=== PATIENT | female | born 1970 | race Caucasian/White ===

== ENCOUNTER 2019-10-02 18:22 | Inpatient (IN) | payer BC ==
[~2019-10-02] VITALS: Ht 154.9 cm; Wt 75.6 kg
[2019-10-02] MEDS ORDERED: IV NORMAL SALINE 1000ML BAG 1,000 ML IV SCH (18:28)
[2019-10-02] MEDS ORDERED: HEPARIN for IV BOLUS 10,000 UNIT/10 ML VIAL. ONE ×2 (18:29→18:59)
[2019-10-02] MEDS ORDERED: HEPARIN for IV BOLUS 10,000 UNIT/10 ML VIAL. IV ONE ×2 (18:30→19:15)
--- NOTE | 2019-10-02 18:37 | PHYS DOC ---
General Adult HPI: HPI: 48-year-old female past medical history of COPD, hypothyroidism and tobacco dependence presents to the ED brought in by EMS as a code STEMI (prenotification), concerning for inferior wall STEMI. Patient reports she is having bilateral upper chest pressure nonradiating with associated shortness of breath that started at 5 PM earlier tonight. No family history of ACS or sudden cardiac . Past surgical history of . EMS gave 324 chewable asa and 100mcg fentanyl, no nitro. Patient reported to RN that she recently started a weight loss program. Review of Systems: Review of Systems: Constitutional: Denies fever or chills. [] Eyes: Denies change in visual acuity. [] HENT: Denies nasal congestion or sore throat. [] Respiratory: Denies cough or hemoptysis [] Cardiovascular: Denies edema. [] GI: Denies abdominal pain, nausea, vomiting, bloody stools or diarrhea. [] : Denies dysuria. [] Musculoskeletal: Denies back pain or joint pain. [] Integument: Denies rash. [] Neurologic: Denies headache, focal weakness or sensory changes. [] Endocrine: Denies polyuria or polydipsia. [] Lymphatic: Denies swollen glands. [] Psychiatric: Denies depression or anxiety. [] Heart Score: HEART Score for Chest Pain: HEART Score for Chest Pain Response (Comments) Value History Highly Suspicious [address] Depression 2 Age >45 - < 65 1 Risk Factors 1 or 2 Risk Factors 1 Troponin >1-<3x Normal Limit 1 Total 7 Risk Factors: Risk Factors: DM, Current or recent (<one month) smoker, HTN, HLP, family history of CAD, obesity. Risk Scores: Score 0 - 3: 2.5% MACE over next 6 weeks - Discharge Home Score 4 - 6: 20.3% MACE over next 6 weeks - Admit for Clinical Observation Score 7 - 10: 72.7% MACE over next 6 weeks - Early Invasive Strategies Current Medications: Current Medications Medications (Trade) Dose Ordered Sig/Ed Start Time Stop Time Status Last Admin Dose Admin Heparin Sodium (Porcine) (Heparin Sodium) 10,000 unit STK-MED ONCE 10/02/19 18:29 10/02/19 18:30 DC Physical Exam: PE: Constitutional: in acute distress, obese, speaking in full sentences despite hypotension and bradycardia HENT: Normocephalic, atraumatic, bilateral external ears normal, oropharynx moist, no oral exudates, nose normal. [] Eyes: EOMI, conjunctiva normal, no discharge. [] Neck: Normal range of motion, no tenderness, supple, no stridor. [] Cardiovascular:Heart rate regular rhythm, no murmur [] Lungs & Thorax: Bilateral breath sounds clear to auscultation [] Abdomen: Bowel sounds normal, soft, no tenderness, no masses, no pulsatile masses. [] Skin: Warm, pale appearing, mildly diaphoretic Back: No tenderness, no CVA tenderness. [] Extremities: No tenderness, no cyanosis, no clubbing, ROM intact, no edema. [] Neurologic: Alert and oriented X 3, normal motor function, normal sensory function, no focal deficits noted. [] Psychologic: Affect normal, judgement normal, mood normal. [] Interventional cards present in ed-Dr. Redd, recs heparin bolus and to label operator Current Patient Data: Vital Signs: 85/51, 45 & 37 bpm, 96% RA, EKG: EKG: Concern for ST elevations in 2, 3, aVF with reciprocal depressions in lead I and aVL, QTC 450, patient bradycardic at 46 bpm Radiology/Procedures: Radiology/Procedures: IMAGING REPORT Signed PATIENT: MARIETTA DE LEON ACCOUNT: [id number] : 1970 LOCATION: ER AGE: 48 SEX: F EXAM STATUS: REG ER ORD. PHYSICIAN: KO ELAINE APRN REASON: chest pain PROCEDURE: CHEST AP ONLY Study: CR CHEST AP ONLY Indication: Chest pain. Comparison: None recently. Findings: The cardiomediastinal silhouette is prominent in size. No layering effusion. No lobar consolidation or pneumothorax. Grossly intact osseous structures. No free air seen under the diaphragm. Impression: The cardiomediastinal silhouette is prominent in size but without radiographic findings of overt failure/volume overload. Electronically signed by: JOAN PEÑA MD (10/02/2019 6:50 PM) [id number] DICTATED and SIGNED BY: JOAN PEÑA MD DATE: 10/02/19 1850 Impression: Concern for inferior wall STEMI in the setting of hypotension and bradycardia. Heparin bolus started in ED. Two peripheral IVs placed with NS bolus. No change with atropine 0.5mg given by ems. Pt emergently transported to label operator w/Dr. Redd-to recieve plavix/brillinta there. Labs with troponin in normal range. Glucose 338 w/AG, bicarb < 18 (is 17)-pt denies h/o diabetes. Will need glucose repeated and HgA1c. patient will be accepted to the ICU by Dr. Damian whom I spoke with. Course & Med Decision Making: Course & Med Decision Making Pertinent Labs and Imaging studies reviewed. (See chart for details) [] Dragon Disclaimer: Dragon Disclaimer: This electronic medical record was generated, in whole or in part, using a voice recognition dictation system. Departure Departure Impression: Primary Impression: ST elevation myocardial infarction (STEMI) of inferior wall Additional Impressions: Chest pain COPD (chronic obstructive pulmonary disease) Hypothyroidism Hyperglycemia Disposition: 09 ADMITTED INPATIENT Admitting Physician: CHAN Condition: CRITICAL Justicifation of Admission Dx: Justifications for Admission: Justification of Admission Dx: Yes MD: Acute STEMI KATLIN MCKEON DO Oct 02, 2019 18:37
[2019-10-02 18:38] LABS: BASO # 0.1 x10^3/uL (0.0-0.2); BASO % 1 % (0-3); EOS # 0.2 x10^3/uL (0.0-0.7); EOS % 2 % (0-3); HEMATOCRIT 35.3 % (36.0-47.0); HEMOGLOBIN 11.6 g/dL (12.0-15.5); LYMPH # 3.7 x10^3/uL (1.0-4.8); LYMPH % 28 % (24-48); MEAN CORPUSCULAR HEMOGLOBIN 27 pg (25-35); MEAN CORPUSCULAR HGB CONC 33 g/dL (31-37); MEAN CORPUSCULAR VOLUME 83 fL (79-100); MONO # 0.7 x10^3/uL (0.0-1.1); MONO % 6 % (0-9); NEUT # 8.2 x10^3/uL (1.8-7.7); NEUT % 63 % (31-73); PLATELET COUNT 353 x10^3/uL (140-400); RED BLOOD COUNT 4.28 x10^6/uL (3.50-5.40); RED CELL DISTRIBUTION WIDTH 20.7 % (11.5-14.5)
[2019-10-02] MEDS ORDERED: PHENYLEPHRINE in 0.9% NACL PF 1 MG/10 ML SYRINGE. IV ONE (18:47)
[2019-10-02] MEDS ORDERED: ONDANSETRON PF 4 MG/2 ML VIAL. ONE (18:48)
--- NOTE | 2019-10-02 18:53 | RAD ---
Study: CR CHEST AP ONLY Indication: Chest pain. Comparison: None recently. Findings: The cardiomediastinal silhouette is prominent in size. No layering effusion. No lobar consolidation or pneumothorax. Grossly intact osseous structures. No free air seen under the diaphragm. Impression: The cardiomediastinal silhouette is prominent in size but without radiographic findings of overt failure/volume overload. Electronically signed by: JOAN PEÑA MD (10/02/2019 6:50 PM) [id number]
[2019-10-02 18:56] LABS: CALCIUM 7.8 mg/dL (8.5-10.1); CREATININE 1.2 mg/dL (0.6-1.0); GFR 48.2
[2019-10-02 19:00] LABS: ALBUMIN 2.5 g/dL (3.4-5.0); ALBUMIN/GLOBULIN RATIO 0.8 (1.0-1.7); MAGNESIUM 1.8 mg/dL (1.8-2.4); TOTAL BILIRUBIN 0.1 mg/dL (0.2-1.0); TOTAL PROTEIN 5.7 g/dL (6.4-8.2)
[2019-10-02] MEDS ORDERED: AMIODARONE 150 MG/3 ML VIAL ONE (19:00)
[2019-10-02] MEDS: PHENYLEPHRINE in 0.9% NACL PF 1 MG/10 ML SYRINGE. IV ONE (19:00)
[2019-10-02] MEDS ORDERED: TIROFIBAN 5MG -0.9% NS 100 ML IV ONE (19:00)
[2019-10-02] MEDS ORDERED: fentaNYL PF VIAL 100 MCG/2 ML VIAL ONE (19:03)
[2019-10-02 19:05] LABS: PROTHROMBIN TIME PATIENT 12.5 SEC (11.7-14.0)
[2019-10-02 19:10] LABS: PREG TEST PT QUAL NEGATIVE (NEG)
[2019-10-02] MEDS ORDERED: PRASUGREL 10 MG TABLET. PO ONE (19:15)
[2019-10-02] MEDS ORDERED: MORPHINE SULFATE 4 MG/ML VIAL. IV PRN (19:15)
[2019-10-02] MEDS ORDERED: fentaNYL PF VIAL 100 MCG/2 ML VIAL IV ONE (19:15)
[2019-10-02] MEDS ORDERED: LIDOCAINE 2% 20 ML VIAL. IJ ONE (19:15)
[2019-10-02] MEDS ORDERED: ONDANSETRON PF 4 MG/2 ML VIAL. IV PRN (19:15)
[2019-10-02] MEDS ORDERED: IODIXANOL 320 MG/ML 100 ML VIAL. IART ONE (19:15)
[2019-10-02] MEDS ORDERED: TIROFIBAN 5MG -0.9% NS 100 ML IV PRN (19:15)
[2019-10-02] MEDS ORDERED: PRASUGREL 10 MG TABLET. ONE (19:32)
[2019-10-02 19:36] LABS: MICROCYTOSIS SLIGHT; PLT ESTIMATE ADEQUATE (ADEQUATE)
[2019-10-02] MEDS ORDERED: AMIODARONE 150 MG/3 ML VIAL IVP ONE (19:45)
[2019-10-02] MEDS ORDERED: oxyCODONE/APAP 5/325 1 TAB TABLET PO PRN (19:45)
[2019-10-02] MEDS ORDERED: NITROGLYCERIN SUBLINGUAL 0.4 MG BOTTLE OF 25. SL PRN (19:45)
[2019-10-02] MEDS ORDERED: ACETAMINOPHEN 325 MG TABLET. PO PRN (19:45)
[2019-10-02] MEDS ORDERED: AMIODARONE 150 MG in IV DEXTROSE 5% 100ML 100 ML IV PRN (19:45)
[2019-10-02] MEDS ORDERED: 0.9 % SODIUM CHLORIDE 10 ML DISP.SYRIN. IV PRN (19:45)
[2019-10-02] MEDS ORDERED: LIDOCAINE 2% 100 MG/5 ML SYRINGE. IV PRN (19:45)
[2019-10-02] MEDS ORDERED: ATROPINE 0.5 MG/5 ML DISP.SYRINGE. IV PRN (19:45)
[2019-10-02] MEDS ORDERED: fentaNYL PF VIAL 100 MCG/2 ML VIAL IV PRN (19:45)
--- NOTE | 2019-10-02 19:53 | CONS ---
DATE OF CONSULTATION: 10/02/2019 REASON FOR CONSULTATION: Acute inferior STEMI. HISTORY OF PRESENT ILLNESS: The patient is a pleasant 48-year-old woman coming into the hospital in the setting of acute chest pain that started approximately 3 hours prior to admission. Her EKG demonstrated inferior ST elevations and she was in cardiogenic shock with a blood pressure of 60/40. She was emergently transferred to the cardiac catheterization laboratory after verbal informed consent was obtained. The patient otherwise denied any recent cardiovascular issues. PAST MEDICAL HISTORY: 1. Tobacco abuse. 2. COPD. 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 Denies any illicit drug use. No heavy alcohol use. She is a smoker as noted above. FAMILY HISTORY: Noncontributory. REVIEW OF SYSTEMS: Negative for 10 out of 14 systems reviewed, unless otherwise mentioned above in HPI. PHYSICAL EXAMINATION: VITAL SIGNS: Afebrile, blood pressure 60/40, heart rate 110, pulse ox 85% on 10 liters nasal cannula. GENERAL: She was in significant distress and mildly incoherent. HEAD AND NECK: Unremarkable. CARDIAC: Irregular rhythm without any obvious murmurs, rubs or gallops. LUNGS: With decreased breath sounds at the bases. ABDOMEN: Soft, nontender. EXTREMITIES: Nonpalpable pulses due to hypotension. NEUROLOGIC: No focal deficits. MUSCULOSKELETAL: No obvious trauma. DIAGNOSTIC STUDIES: EKG demonstrates a [address] elevations with reciprocal posterolateral changes. Creatinine 1.2. Cardiac catheterization demonstrated a 1-vessel coronary artery disease with acute proximal RCA occlusion. This was treated with 2 non-overlapping stents in the proximal and mid segment. See catheterization report for full details. IMPRESSION: 1. Acute inferior ST elevation myocardial infarction. 2. Tobacco abuse. 3. Transient bradycardia upon her admission, but resolved after post-PCI. RECOMMENDATIONS: 1. Continue Aggrastat drip over the next 2-4 hours. The patient was loaded with prasugrel in the roofing laborer. 2. High-dose statin therapy. 3. Routine echocardiogram. Plan for sheath removal tomorrow morning if the patient is stable overnight. Thank you for this consultation. ALEKSANDER GIANG MD DR: MARIO/darnell JOB#: [id number] / [id number]
[2019-10-02 20:15] VITALS: BP 98/55
[2019-10-02] MEDS ORDERED: IODIXANOL 320 MG/ML 100 ML VIAL. ONE (20:16)
[2019-10-02] MEDS ORDERED: LIDOCAINE 1% Multi-Dose 20 ML VIAL. ONE (20:16)
[2019-10-02] MEDS ORDERED: HEPARIN for ARTERIAL LINE 1,500 ML ONE (20:16)
[2019-10-02 20:30] VITALS: BP_SYST 116; BP_SYST 97; BP_DIAS 56; BP_DIAS 58
[2019-10-02 20:45] VITALS: BP 130/64
[2019-10-02 21:00] VITALS: BP 130/62
[2019-10-02] MEDS: ATORVASTATIN CALCIUM 20 MG TABLET PO SCH (21:26)
--- NOTE | 2019-10-02 21:30 | NUR ---
-Patient admitted to room 110 from laborer aquatic life. Patient AOX4, oriented to room and call light. Patient understands the need to lay flat as A/V sheath is still in place in right femoral. Vascular assessment completed. Assisted patient with bedpan. Patient able to answer admission questions and med was completed. Patient resting comfortably in bed, no complaints at this time. -Aggrastat turned off at [address] Marti -Re assessments not completed in ER/Senior Compliance Analyst marked "not done" by this RN
[2019-10-02] MEDS ORDERED: BUPR150T15 PO (21:45)
[2019-10-02] MEDS ORDERED: LEVO50TA PO (21:45)
[2019-10-02] MEDS ORDERED: QUET25TA5 PO (21:45)
[2019-10-02] MEDS ORDERED: FOLI20CA PO (21:45)
--- NOTE | 2019-10-02 21:51 | PDOC1 ---
History and Physical Date of Admission Date of Admission DATE: 10/02/19 TIME: 21:49 Identification/Chief Complaint Chief Complaint Chest pain Source Source: Patient History of Present Illness History of Present Illness Ms Perez is a 48 yo F w/ PMHx COPD, hypothyroidism, depression, and tobacco dependence presents to the ED brought in via EMS for inferior wall STEMI. Patient reports she is having bilateral upper chest pressure nonradiating with associated shortness of breath that started at 5 PM earlier tonight. EMS gave 324 chewable asa and 100mcg fentanyl, no nitro. Patient recently started a "detox tea" for help with weight loss. 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 BP noted 85/51, HR 45 bpm, 96% RA, ST elevations in 2, 3, aVF with reciprocal depressions in lead I and aVL, QTC 4 50, patient bradycardic at 46 bpm CXR with enlarged cardiac silhouette. Concern for inferior wall STEMI in the setting of hypotension and bradycardia. Heparin bolus started in ED. Two peripheral IVs placed with NS bolus. No change with atropine 0.5mg given by ems. Pt emergently transported to sanitation lab[facility] w/Dr. Redd, loaded with effient, heparin. Troponin in normal range. Glucose 338 w/AG, bicarb < 18 (is 17)-pt denies h/o diabetes. Cardiac catheterization demonstrated a 1-vessel coronary artery disease with acute proximal RCA occlusion. This was treated with 2 non-overlapping stents in the proximal and mid segment. She required dopamine and phenylephrine post-cath temporarily. Seen post-cath her blood pressure has normalized and she is in excellent spirits. Chest pain free. Family History Family History: High Cholestrol, Hypertension Social History Smoke: 1 pack per day ALCOHOL: rare Drugs: None Current Problem List Problem List Problems Medical Problems: (1) Chest pain Status: Acute (2) COPD (chronic obstructive pulmonary disease) Status: Acute (3) Hyperglycemia Status: Acute (4) Hypothyroidism Status: Acute (5) ST elevation myocardial infarction (STEMI) of inferior wall Status: Acute Current Medications Current Medications Current Medications Heparin Sodium (Porcine) (Heparin Sodium) 10,000 unit STK-MED ONCE .ROUTE ; Start 10/02/19 at 18:29; Stop 10/02/19 at 18:30; Status DC Heparin Sodium (Porcine) (Heparin Sodium) 4,000 unit 1X ONCE IV Last administered on 10/02/19at 18:33; Start 10/02/19 at 18:30; Stop 10/02/19 at 18:40; Status DC Sodium Chloride 1,000 ml @ 1,000 mls/hr Q1H IV Last administered on 10/02/19at 18:33; Start 10/02/19 at 18:28; Stop 10/02/19 at 19:29; Status DC Phenylephrine HCl (PHENYLEPHRINE in 0.9% NACL PF) 1 mg STK-MED ONCE IV ; Start 10/02/19 at 18:47; Stop 10/02/19 at 18:47; Status DC Dopamine HCl/ Dextrose 250 ml @ 0 mls/hr 1X ONCE IV Last administered on 10/02/19at 19:00; Start 10/02/19 at 19:00; Stop 10/02/19 at 19:01; Status DC Ondansetron HCl (Zofran) 4 mg STK-MED ONCE .ROUTE ; Start 10/02/19 at 18:48; Stop 10/02/19 at 18:48; Status DC Heparin Sodium (Porcine) (Heparin Sodium) 10,000 unit STK-MED ONCE .ROUTE ; Start 10/02/19 at 18:59; Stop 10/02/19 at 19:00; Status DC Tirofiban/Sodium Chloride 100 ml @ As Directed STK-MED ONCE IV ; Start 10/02/19 at 19:00; Stop 10/02/19 at 19:00; Status DC Amiodarone HCl (Cordarone) 150 mg STK-MED ONCE .ROUTE ; Start 10/02/19 at 19:00; Stop 10/02/19 at 19:00; Status DC Fentanyl Citrate (Fentanyl 2ml Vial) 100 mcg STK-MED ONCE .ROUTE ; Start 10/02/19 at 19:03; Stop 10/02/19 at 19:03; Status DC Ondansetron HCl (Zofran) 4 mg PRN Q8HRS PRN IV NAUSEA/VOMITING Last administered on 10/02/19at 18:50; Start 10/02/19 at 19:15; Stop 10/03/19 at 19:14 Morphine Sulfate (Morphine Sulfate) 4 mg PRN Q2HR PRN IV PAIN; Start 10/02/19 at 19:15; Stop 10/03/19 at 19:14 Heparin Sodium/ Sodium Chloride (HEPARIN for ARTERIAL LINE FLUSH) 1,000 unit 1X ONCE IART Last administered on 10/02/19at 19:15; Start 10/02/19 at 19:15; Stop 10/02/19 at 19:29; Status DC Heparin Sodium/ Sodium Chloride (HEPARIN for ARTERIAL LINE FLUSH) 1,000 unit 1X ONCE IART Last administered on 10/02/19at 19:15; Start 10/02/19 at 19:15; Stop 10/02/19 at 19:29; Status DC Fentanyl Citrate (Fentanyl 2ml Vial) 100 mcg 1X ONCE IV Last administered on 10/02/19at 19:05; Start 10/02/19 at 19:15; Stop 10/02/19 at 19:29; Status DC Iodixanol (Visipaque 320) 100 ml 1X ONCE IART Last administered on 10/02/19at 19:15; Start 10/02/19 at 19:15; Stop 10/02/19 at 19:29; Status DC Prasugrel (Effient) 60 mg 1X ONCE PO Last administered on 10/02/19at 19:15; S tart 10/02/19 at 19:15; Stop 10/02/19 at 19:29; Status DC Heparin Sodium (Porcine) (Heparin Sodium) 2,000 unit 1X ONCE IV Last administered on 10/02/19at 19:05; Start 10/02/19 at 19:15; Stop 10/02/19 at 19:29; Status DC Lidocaine HCl 20 ml 1X ONCE IJ Last administered on 10/02/19at 18:50; Start 10/02/19 at 19:15; Stop 10/02/19 at 19:29; Status DC Tirofiban/Sodium Chloride 100 ml @ 0 mls/hr CONT PRN IV PER PROTOCOL Last administered on 10/02/19at 19:05; Start 10/02/19 at 19:15; Stop 10/03/19 at 13:14 Heparin Sodium/ Sodium Chloride 500 ml @ As Directed STK-MED ONCE .ROUTE ; Start 10/02/19 at 19:29; Stop 10/02/19 at 19:29; Status DC Prasugrel (Effient) 10 mg STK-MED ONCE .ROUTE ; Start 10/02/19 at 19:32; Stop 10/02/19 at 19:32; Status DC Sodium Chloride (Normal Saline Flush) 3 ml QSHIFT PRN IV AFTER MEDS AND BLOOD DRAWS; Start 10/02/19 at 19:45 Aspirin (Ecotrin) 81 mg DAILYWBKFT PO ; Start 10/03/19 at 08:00 Prasugrel (Effient) 10 mg DAILYWBKFT PO ; Start 10/03/19 at 08:00 Atorvastatin Calcium (Lipitor) 40 mg QHS PO Last administered on 10/02/19at 21:26; Start 10/02/19 at 21:00 Acetaminophen (Tylenol) 650 mg PRN Q6HRS PRN PO MILD PAIN / TEMP > 100.3'F; Start 10/02/19 at 19:45 Fentanyl Citrate (Fentanyl 2ml Vial) 50 mcg PRN Q1HR PRN IV MODERATE OR SEVERE PAIN; Start 10/02/19 at 19:45 Nitroglycerin (Nitrostat) 0.4 mg PRN Q5MIN PRN SL CHEST PAIN; Start 10/02/19 at 19:45 Amiodarone HCl 150 mg/Dextrose 103 ml @ 600 mls/hr 1X PRN PRN IV FOR VENTRICULAR TACHYCARDIA; Start 10/02/19 at 19:45 Lidocaine HCl (Lidocaine HCl 2% Abboject) 100 mg 1X PRN PRN IV FOR VENTRICULAR TACHYCARDIA; Start 10/02/19 at 19:45 Atropine Sulfate (ATROPINE 0.5mg SYRINGE) 0.5 mg PRN 1X PRN IV BRADYCARDIA; Start 10/02/19 at 19:45 Oxycodone/ Acetaminophen (Percocet 5/325) 1 tab PRN Q4HRS PRN PO MILD PAIN 1-3; Start 10/02/19 at 19:45 Amiodarone HCl (Cordarone) 150 mg 1X ONCE IVP Last administered on 10/02/19at 19:00; Start 10/02/19 at 19:45; Stop 10/02/19 at 19:51; Status DC Lidocaine HCl (Lidocaine 1% 20ml Vial) 20 ml STK-MED ONCE .ROUTE ; Start 10/02/19 at 20:16; Stop 10/02/19 at 20:16; Status DC Iodixanol (Visipaque 320) 100 ml STK-MED ONCE .ROUTE ; Start 10/02/19 at 20:16; Stop 10/02/19 at 20:16; Status DC Heparin Sodium/ Sodium Chloride 1,500 ml @ As Directed STK-MED ONCE .ROUTE ; Start 10/02/19 at 20:16; Stop 10/02/19 at 20:16; Status DC Active Scripts Active Reported Seroquel (Quetiapine Fumarate) 25 Mg Tablet 1 Tab PO QHS Synthroid (Levothyroxine Sodium) 50 Mcg Tablet 1 Tab PO DAILY Wellbutrin Xl (Bupropion Hcl) 150 Mg Tab.er.24h 1 Tab PO DAILYWBKFT Folic Acid 20 Mg Capsule 20 Mg PO DAILY Allergies Allergies: Coded Allergies: No Known Drug Allergies (Unverified , 10/02/19) ROS General: No: Chills, Night Sweats, Fatigue, Malaise, Appetite, Other PSYCHOLOGICAL ROS: YES: Anxiety; No: Behavioral Disorder, Concentration difficultie, Decreased libido, Depression, Disorientation, Hallucinations, Hostility, Irritablity, Memory difficulties, Mood Swings, Obsessive thoughts, Physical abuse, Sexual abuse, Sleep disturbances, Suicidal ideation, Other Eyes: No Blurry vision, No Decreased vision, No Double vision, No Dry eyes, No Excessive tearing, No Eye Pain, No Itchy Eyes, No Loss of vision, No Photophobia, No Scotomata, No Uses contacts, No Uses glasses, No Other HEENT: No: Heacaches, Visual Changes, Hearing change, Nasal congestion, Nasal discharge, Oral lesions, Sinus pain, Sore Throat, Epistaxis, Sneezing, Snoring, Tinnitus, Vertigo, Vocal changes, Other ALLERGY AND IMMUNOLOGY: No: Hives, Insect Bite Sensitivity, Itchy/Watery Eyes, Nasal Congestion, Post Nasal Drip, Seasonal Allergies, Other Hematological and Lymphatic: No: Bleeding Problems, Blood Clots, Blood Transfusions, Brusing, Night Sweats, Pallor, Swollen Lymph Nodes, Other ENDOCRINE: No: Breast Changes, Galactorrhea, Hair Pattern Changes, Hot Flashes, Malaise/lethargy, Mood Swings, Palpitations, Polydipsia/polyuria, Skin Changes, Temperature Intolerance, Unexpected Weight Changes, Other Breast: No New/Changing Breast Lumps, No Nipple changes, No Nipple discharge, No Other Respiratory: No: Cough, Hemoptysis, Orthopnea, Pleuritic Pain, Shortness of breath, SOB with excertion, Sputum Changes, Stridor, Tachypnea, Wheezing, Other Cardiovascular: No Chest Pain, No Palpitations, No Orthopnea, No Paroxysmal Noc. Dyspnea, No Edema, No Lt Headedness, No Other Gastrointestinal: No Nausea, No Vomiting, No Abdominal Pain, No Diarrhea, No Constipation, No Melena, No Hematochezia, No Other Genitourinary: No Dysuria, No Frequency, No Incontinence, No Hematuria, No Retention, No Discharge, No Urgency, No Pain, No Flank Pain, No Other, No , No , No , No , No , No , No Musculoskeletal: No Gait Disturbance, No Joint Pain, No Joint Stiffness, No Joint Swelling, No Muscle Pain, No Muscular Weakness, No Pain In:, No Swelling In:, No Other Neurological: No Behavorial Changes, No Bowel/Bladder ControlChng, No Confusion, No Dizziness, No Gait Disturbance, No Headaches, No Impaired Coord/balance, No Memory Loss, No Numbness/Tingling, No Seizures, No Speech Problems, No Tremors, No Visual Changes, No Weakness, No Other Skin: No Dry Skin, No Eczema, No Hair Changes, No Lumps, No Mole Changes, No Mottling, No Nail Changes, No Pruritus, No Rash, No Skin Lesion Changes, No Other, No Acne Physical Exam General: Alert, Oriented X3, Cooperative, No acute distress HEENT: Atraumatic, PERRLA, EOMI, Mucous membr. moist/pink Lungs: Clear to auscultation, Normal air movement Heart: S1S2, RRR, no thrills, no rubs, no gallops, no murmurs Abdomen: Normal bowel sounds, Soft, No tenderness, No hepatosplenomegaly, No masses Rectal Exam: not examined Extremities: No clubbing, No cyanosis, No edema, Normal pulses, No tenderness/swelling Skin: No rashes, No breakdown, No significant lesion Neuro: Normal speech, Strength at 5/5 X4 ext, Normal tone, Sensation intact, Cranial nerves 3-12 NL, Reflexes 2+ Psych/Mental Status: Mental status NL, Mood NL Vitals Vitals Vital Signs Date Time Temp Pulse Resp B/P (MAP) Pulse Ox O2 Delivery O2 Flow Rate FiO2 10/02/19 20:30 77 16 95 Room Air 10/02/19 18:37 66/38 (47) 2.0 10/02/19 18:25 97.4 97.4 Labs Labs Laboratory Tests Test 10/02/19 18:30 10/02/19 19:18 White Blood Count 13.0 x10^3/uL (4.0-11.0) Red Blood Count 4.28 x10^6/uL (3.50-5.40) Hemoglobin 11.6 g/dL (12.0-15.5) Hematocrit 35.3 % (36.0-47.0) Mean Corpuscular Volume 83 fL (79-100) Mean Corpuscular Hemoglobin 27 pg (25-35) Mean Corpuscular Hemoglobin Concent 33 g/dL (31-37) Red Cell Distribution Width 20.7 % (11.5-14.5) Platelet Count 353 x10^3/uL (140-400) Neutrophils (%) (Auto) 63 % (31-73) Lymphocytes (%) (Auto) 28 % (24-48) Monocytes (%) (Auto) 6 % (0-9) Eosinophils (%) (Auto) 2 % (0-3) Basophils (%) (Auto) 1 % (0-3) Neutrophils # (Auto) 8.2 x10^3/uL (1.8-7.7) Lymphocytes # (Auto) 3.7 x10^3/uL (1.0-4.8) Monocytes # (Auto) 0.7 x10^3/uL (0.0-1.1) Eosinophils # (Auto) 0.2 x10^3/uL (0.0-0.7) Basophils # (Auto) 0.1 x10^3/uL (0.0-0.2) Platelet Estimate Adequate (ADEQUATE) Microcytosis Slight Macrocytosis Slight Prothrombin Time 12.5 SEC (11.7-14.0) Prothromb Time International Ratio 1.0 (0.8-1.1) Sodium Level 134 mmol/L (136-145) Potassium Level 5.0 mmol/L (3.5-5.1) Chloride Level 102 mmol/L (98-107) Carbon Dioxide Level 17 mmol/L (21-32) Anion Gap 15 (6-14) Blood Urea Nitrogen 12 mg/dL (7-20) Creatinine 1.2 mg/dL (0.6-1.0) Estimated GFR (Cockcroft-Gault) 48.2 BUN/Creatinine Ratio 10 (6-20) Glucose Level 338 mg/dL (70-99) Calcium Level 7.8 mg/dL (8.5-10.1) Magnesium Level 1.8 mg/dL (1.8-2.4) Total Bilirubin 0.1 mg/dL (0.2-1.0) Aspartate Amino Transf (AST/SGOT) 92 U/L (15-37) Alanine Aminotransferase (ALT/SGPT) 77 U/L (14-59) Alkaline Phosphatase 131 U/L (46-116) Creatine Kinase 48 U/L (26-192) Troponin I Quantitative 0.021 ng/mL (0.000-0.055) ST-Mtp-B-Type Natriuretic Peptide 287 pg/mL (0-124) Total Protein 5.7 g/dL (6.4-8.2) Albumin 2.5 g/dL (3.4-5.0) Albumin/Globulin Ratio 0.8 (1.0-1.7) Serum Test, Qualitative Negative (NEG) Activated Clotting Time 183 sec (92-181) Laboratory Tests Test 10/02/19 18:30 10/02/19 19:18 White Blood Count 13.0 x10^3/uL (4.0-11.0) Red Blood Count 4.28 x10^6/uL (3.50-5.40) Hemoglobin 11.6 g/dL (12.0-15.5) Hematocrit 35.3 % (36.0-47.0) Mean Corpuscular Volume 83 fL (79-100) Mean Corpuscular Hemoglobin 27 pg (25-35) Mean Corpuscular Hemoglobin Concent 33 g/dL (31-37) Red Cell Distribution Width 20.7 % (11.5-14.5) Platelet Count 353 x10^3/uL (140-400) Neutrophils (%) (Auto) 63 % (31-73) Lymphocytes (%) (Auto) 28 % (24-48) Monocytes (%) (Auto) 6 % (0-9) Eosinophils (%) (Auto) 2 % (0-3) Basophils (%) (Auto) 1 % (0-3) Neutrophils # (Auto) 8.2 x10^3/uL (1.8-7.7) Lymphocytes # (Auto) 3.7 x10^3/uL (1.0-4.8) Monocytes # (Auto) 0.7 x10^3/uL (0.0-1.1) Eosinophils # (Auto) 0.2 x10^3/uL (0.0-0.7) Basophils # (Auto) 0.1 x10^3/uL (0.0-0.2) Platelet Estimate Adequate (ADEQUATE) Microcytosis Slight Macrocytosis Slight Prothrombin Time 12.5 SEC (11.7-14.0) Prothromb Time International Ratio 1.0 (0.8-1.1) Sodium Level 134 mmol/L (136-145) Potassium Level 5.0 mmol/L (3.5-5.1) Chloride Level 102 mmol/L (98-107) Carbon Dioxide Level 17 mmol/L (21-32) Anion Gap 15 (6-14) Blood Urea Nitrogen 12 mg/dL (7-20) Creatinine 1.2 mg/dL (0.6-1.0) Estimated GFR (Cockcroft-Gault) 48.2 BUN/Creatinine Ratio 10 (6-20) Glucose Level 338 mg/dL (70-99) Calcium Level 7.8 mg/dL (8.5-10.1) Magnesium Level 1.8 mg/dL (1.8-2.4) Total Bilirubin 0.1 mg/dL (0.2-1.0) Aspartate Amino Transf (AST/SGOT) 92 U/L (15-37) Alanine Aminotransferase (ALT/SGPT) 77 U/L (14-59) Alkaline Phosphatase 131 U/L (46-116) Creatine Kinase 48 U/L (26-192) Troponin I Quantitative 0.021 ng/mL (0.000-0.055) RN-Adt-W-Type Natriuretic Peptide 287 pg/mL (0-124) Total Protein 5.7 g/dL (6.4-8.2) Albumin 2.5 g/dL (3.4-5.0) Albumin/Globulin Ratio 0.8 (1.0-1.7) Serum Test, Qualitative Negative (NEG) Activated Clotting Time 183 sec (92-181) Images Images CXR: The cardiomediastinal silhouette is prominent in size. No layering effusion. No lobar consolidation or pneumothorax. Grossly intact osseous structures. No free air seen under the diaphragm. Impression: The cardiomediastinal silhouette is prominent in size but without radiographic findings of overt failure/volume overload. VTE Prophylaxis Ordered VTE Prophylaxis Devices: Yes VTE Pharmacological Prophylaxi: Yes Assessment/Plan Assessment/Plan A/P: ST elevation myocardial infarction (STEMI) of inferior wall - s/p x2 NILDA to RCA per Dr. Marti with excellent improvement Cardiogenic shock - quickly improved after revascularization Chest pain - 2/2 STEMI COPD (chronic obstructive pulmonary disease) - prn nebs ordered. Smoking cessation counseling performed bedside Hypothyroidism - TSH WNL, will cont levothyroxine dosing Hyperglycemia - will check A1c. POC glucose checks Depression - cont wellbutrin, seroquel, add prn lorazepam while inpatient Obesity - counseled on weight loss, taking "detox tea" currently FEN - NPO PPX - Heparin FULL CODE Dispo - inpatient 2 midnights. ICU for hypotension, STEMI CC time 47 minutes Justicifation of Admission Dx: Justifications for Admission: Justification of Admission Dx: Yes RADHA ERICKSON MD Oct 02, 2019 21:51
[2019-10-02 22:00] VITALS: BP 140/68
[2019-10-02] MEDS ORDERED: DEXTROSE 50% 25 GM / 50ML DISP.SYRIN. IV PRN (22:00)
[2019-10-02] MEDS ORDERED: CARV25TA2 PO (22:05)
[2019-10-02] MEDS: QUEtiapine 25 MG TABLET. PO SCH (22:37)
[2019-10-02] MEDS ORDERED: ZOLPIDEM 5 MG TABLET. PO PRN (22:45)
[2019-10-02] MEDS ORDERED: LORazepam 0.5 MG TABLET PO PRN (22:45)
[2019-10-02 23:00] VITALS: BP 136/70
[2019-10-03] VITALS (15 sets, daily range): BP systolic 110–178; BP diastolic 56–90
[2019-10-03] MEDS: LEVOTHYROXINE 50 MCG TABLET PO SCH (06:31)
[2019-10-03 06:32] LABS: ALBUMIN 2.8 g/dL (3.4-5.0); ALK PHOS 118 U/L (46-116); ALT (SGPT) 225 U/L (14-59); ANION GAP 9 (6-14); AST (SGOT) 432 U/L (15-37); BLOOD UREA NITROGEN 11 mg/dL (7-20); CARBON DIOXIDE 25 mmol/L (21-32); CHLORIDE 104 mmol/L (98-107); CHOLESTEROL 280 mg/dL (0-200); CREATININE 0.8 mg/dL (0.6-1.0); DIRECT BILIRUBIN < 0.1 mg/dL (0.0-0.2); GFR 76.9; GLUCOSE 106 mg/dL (70-99); HDLC 32 mg/dL (40-60); LDLC 193 mg/dL (0-100); POTASSIUM 4.2 mmol/L (3.5-5.1); SODIUM 138 mmol/L (136-145); TOTAL BILIRUBIN 0.2 mg/dL (0.2-1.0); TOTAL PROTEIN 6.1 g/dL (6.4-8.2); TRIGLYCERIDES 277 mg/dL (0-150); VLDLC 55 mg/dL (0-40)
[2019-10-03 06:36] LABS: CHOLESTEROL/HDL RATIO 8.8
--- NOTE | 2019-10-03 06:37 | EKG ---
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
--- NOTE | 2019-10-03 06:45 | EKG ---
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 Electronically Signed On 10-04-2019 16:33:18 CDT by Deven Kirkland
--- NOTE | 2019-10-03 07:23 | EKG ---
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
[2019-10-03] MEDS ORDERED: hydrALAZINE 20 MG/ML VIAL. IVP PRN (07:30)
[2019-10-03] MEDS: LISINOPRIL 10 MG TABLET PO SCH (07:47)
[2019-10-03] MEDS: FOLIC ACID 1 MG TABLET. PO SCH (07:48)
[2019-10-03] MEDS: ASPIRIN ENTERIC COATED 81 MG TABLET.DR. PO SCH (07:48)
[2019-10-03] MEDS: CARVEDILOL 6.25 MG TABLET. PO SCH ×2 (07:48→17:19)
[2019-10-03] MEDS: INSULIN LISPRO 300 UNITS/3 ML VIAL. SQ SCH ×2 (07:49→11:30)
[2019-10-03] MEDS: buPROPion XL 150 MG TAB.ER.24H. PO SCH (07:49)
[2019-10-03] MEDS: PRASUGREL 10 MG TABLET. PO SCH (07:49)
--- NOTE | 2019-10-03 08:43 | PDOC ---
PROGRESS NOTES Chief Complaint Chief Complaint A/P: ST elevation myocardial infarction (STEMI) of inferior wall - s/p x2 NILDA to RCA per Dr. Marti with excellent improvement Cardiogenic shock - quickly improved after revascularization Chest pain - 2/2 STEMI TONY - vasomotor nephropathy from hypotension related to STEMI, improved. COPD (chronic obstructive pulmonary disease) - prn nebs ordered. Smoking cessation counseling performed bedside Hypothyroidism - TSH WNL, will cont levothyroxine dosing Hyperglycemia - will check A1c. POC glucose checks Depression - cont wellbutrin, seroquel, add prn lorazepam while inpatient Obesity - counseled on weight loss, taking "detox tea" currently FEN - ADA cardiac diet PPX - Heparin FULL CODE Dispo - inpatient 2 midnights. ICU for hypotension, STEMI CC time 47 minutes History of Present Illness History of Present Illness Ms Perez is a 48 yo F w/ PMHx COPD, hypothyroidism, depression, and smoker brought in via EMS for inferior wall STEMI. Patient reports she is having bilateral upper chest pressure nonradiating with associated shortness of breath that started at 5 PM 10/01. EMS gave 324 chewable asa and 100mcg fentanyl, no nitro. Patient recently started a "detox tea" for help with weight loss. 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 BP noted 85/51, HR 45 bpm, 96% RA, ST elevations in 2, 3, aVF with reciprocal depressions in lead I and aVL, QTC 450, patient bradycardic at 46 bpm.CXR with enlarged cardiac silhouette. Concern for inferior wall STEMI in the setting of hypotension and bradycardia. Heparin bolus started in ED. Two peripheral IVs placed with NS bolus. No change with atropine 0.5mg given by ems. Pt emergently transported to [facility] w/Dr. Redd, loaded with effient, heparin. Troponin in normal range initially. Cardiac catheterization demonstrated a 1-vessel coronary artery disease with acute proximal RCA occlusion. This was treated with 2 non-overlapping stents in the proximal and mid segment. She required dopamine and phenylephrine post-cath temporarily. Seen post-cath her blood pressure has normalized and she is in excellent spirits. Chest pain free. Trop 126, LFTS elevated, LDL 193. Cr improved from 1.2 to 0.8. She has some abdominal cramping she thinks is similar to her menstrual pains. Had some CP when she sat up that resolved quickly. Discussed her dosing of coreg at home as 62.5mg QHS only, was bradycardic on admission, changed to 6.25mg BID today. Echo performed this morning. Vitals Vitals Vital Signs Date Time Temp Pulse Resp B/P (MAP) Pulse Ox O2 Delivery O2 Flow Rate FiO2 10/03/19 07:48 68 182/96 10/03/19 07:00 22 95 Room Air 10/03/19 04:00 98.3 98.3 10/02/19 18:37 2.0 Physical Exam General: Alert, Oriented X3, Cooperative, No acute distress Abdomen: Normal bowel sounds, Soft, No tenderness, No hepatosplenomegaly, No masses Extremities: No clubbing, No cyanosis, No edema, Normal pulses, No tenderness/swelling Skin: No rashes, No breakdown, No significant lesion Labs LABS Laboratory Tests Test 10/02/19 18:30 10/02/19 19:18 10/02/19 22:21 10/03/19 05:55 White Blood Count 13.0 x10^3/uL (4.0-11.0) Red Blood Count 4.28 x10^6/uL (3.50-5.40) Hemoglobin 11.6 g/dL (12.0-15.5) Hematocrit 35.3 % (36.0-47.0) Mean Corpuscular Volume 83 fL (79-100) Mean Corpuscular Hemoglobin 27 pg (25-35) Mean Corpuscular Hemoglobin Concent 33 g/dL (31-37) Red Cell Distribution Width 20.7 % (11.5-14.5) Platelet Count 353 x10^3/uL (140-400) Neutrophils (%) (Auto) 63 % (31-73) Lymphocytes (%) (Auto) 28 % (24-48) Monocytes (%) (Auto) 6 % (0-9) Eosinophils (%) (Auto) 2 % (0-3) Basophils (%) (Auto) 1 % (0-3) Neutrophils # (Auto) 8.2 x10^3/uL (1.8-7.7) Lymphocytes # (Auto) 3.7 x10^3/uL (1.0-4.8) Monocytes # (Auto) 0.7 x10^3/uL (0.0-1.1) Eosinophils # (Auto) 0.2 x10^3/uL (0.0-0.7) Basophils # (Auto) 0.1 x10^3/uL (0.0-0.2) Platelet Estimate Adequate (ADEQUATE) Microcytosis Slight Macrocytosis Slight Prothrombin Time 12.5 SEC (11.7-14.0) Prothromb Time International Ratio 1.0 (0.8-1.1) Sodium Level 134 mmol/L (136-145) 138 mmol/L (136-145) Potassium Level 5.0 mmol/L (3.5-5.1) 4.2 mmol/L (3.5-5.1) Chloride Level 102 mmol/L (98-107) 104 mmol/L (98-107) Carbon Dioxide Level 17 mmol/L (21-32) 25 mmol/L (21-32) Anion Gap 15 (6-14) 9 (6-14) Blood Urea Nitrogen 12 mg/dL (7-20) 11 mg/dL (7-20) Creatinine 1.2 mg/dL (0.6-1.0) 0.8 mg/dL (0.6-1.0) Estimated GFR (Cockcroft-Gault) 48.2 76.9 BUN/Creatinine Ratio 10 (6-20) Glucose Level 338 mg/dL (70-99) 106 mg/dL (70-99) Calcium Level 7.8 mg/dL (8.5-10.1) 8.0 mg/dL (8.5-10.1) Magnesium Level 1.8 mg/dL (1.8-2.4) Total Bilirubin 0.1 mg/dL (0.2-1.0) 0.2 mg/dL (0.2-1.0) Aspartate Amino Transf (AST/SGOT) 92 U/L (15-37) 432 U/L (15-37) Alanine Aminotransferase (ALT/SGPT) 77 U/L (14-59) 225 U/L (14-59) Alkaline Phosphatase 131 U/L (46-116) 118 U/L (46-116) Creatine Kinase 48 U/L (26-192) Troponin I Quantitative 0.021 ng/mL (0.000-0.055) 126.786 ng/mL (0.000-0.055) DP-Mnz-C-Type Natriuretic Peptide 287 pg/mL (0-124) Total Protein 5.7 g/dL (6.4-8.2) 6.1 g/dL (6.4-8.2) Albumin 2.5 g/dL (3.4-5.0) 2.8 g/dL (3.4-5.0) Albumin/Globulin Ratio 0.8 (1.0-1.7) Serum Test, Qualitative Negative (NEG) Activated Clotting Time 183 sec (92-181) Glucose (Fingerstick) 105 mg/dL (70-99) Direct Bilirubin < 0.1 mg/dL (0.0-0.2) Triglycerides Level 277 mg/dL (0-150) Cholesterol Level 280 mg/dL (0-200) LDL Cholesterol, Calculated 193 mg/dL (0-100) VLDL Cholesterol, Calculated 55 mg/dL (0-40) Non-HDL Cholesterol Calculated 248 mg/dL (0-129) HDL Cholesterol 32 mg/dL (40-60) Cholesterol/HDL Ratio 8.8 Thyroid Stimulating Hormone (TSH) 0.556 uIU/mL (0.358-3.74) Assessment and Plan Assessmemt and Plan Problems Medical Problems: (1) Chest pain Status: Acute (2) COPD (chronic obstructive pulmonary disease) Status: Acute (3) Hyperglycemia Status: Acute (4) Hypothyroidism Status: Acute (5) ST elevation myocardial infarction (STEMI) of inferior wall Status: Acute Comment Review of Relevant I have reviewed the following items serjio (where applicable) has been applied. Labs Laboratory Tests Test 10/02/19 18:30 10/02/19 19:18 10/02/19 22:21 10/03/19 05:55 White Blood Count 13.0 x10^3/uL (4.0-11.0) Red Blood Count 4.28 x10^6/uL (3.50-5.40) Hemoglobin 11.6 g/dL (12.0-15.5) Hematocrit 35.3 % (36.0-47.0) Mean Corpuscular Volume 83 fL (79-100) Mean Corpuscular Hemoglobin 27 pg (25-35) Mean Corpuscular Hemoglobin Concent 33 g/dL (31-37) Red Cell Distribution Width 20.7 % (11.5-14.5) Platelet Count 353 x10^3/uL (140-400) Neutrophils (%) (Auto) 63 % (31-73) Lymphocytes (%) (Auto) 28 % (24-48) Monocytes (%) (Auto) 6 % (0-9) Eosinophils (%) (Auto) 2 % (0-3) Basophils (%) (Auto) 1 % (0-3) Neutrophils # (Auto) 8.2 x10^3/uL (1.8-7.7) Lymphocytes # (Auto) 3.7 x10^3/uL (1.0-4.8) Monocytes # (Auto) 0.7 x10^3/uL (0.0-1.1) Eosinophils # (Auto) 0.2 x10^3/uL (0.0-0.7) Basophils # (Auto) 0.1 x10^3/uL (0.0-0.2) Platelet Estimate Adequate (ADEQUATE) Microcytosis Slight Macrocytosis Slight Prothrombin Time 12.5 SEC (11.7-14.0) Prothromb Time International Ratio 1.0 (0.8-1.1) Sodium Level 134 mmol/L (136-145) 138 mmol/L (136-145) Potassium Level 5.0 mmol/L (3.5-5.1) 4.2 mmol/L (3.5-5.1) Chloride Level 102 mmol/L (98-107) 104 mmol/L (98-107) Carbon Dioxide Level 17 mmol/L (21-32) 25 mmol/L (21-32) Anion Gap 15 (6-14) 9 (6-14) Blood Urea Nitrogen 12 mg/dL (7-20) 11 mg/dL (7-20) Creatinine 1.2 mg/dL (0.6-1.0) 0.8 mg/dL (0.6-1.0) Estimated GFR (Cockcroft-Gault) 48.2 76.9 BUN/Creatinine Ratio 10 (6-20) Glucose Level 338 mg/dL (70-99) 106 mg/dL (70-99) Calcium Level 7.8 mg/dL (8.5-10.1) 8.0 mg/dL (8.5-10.1) Magnesium Level 1.8 mg/dL (1.8-2.4) Total Bilirubin 0.1 mg/dL (0.2-1.0) 0.2 mg/dL (0.2-1.0) Aspartate Amino Transf (AST/SGOT) 92 U/L (15-37) 432 U/L (15-37) Alanine Aminotransferase (ALT/SGPT) 77 U/L (14-59) 225 U/L (14-59) Alkaline Phosphatase 131 U/L (46-116) 118 U/L (46-116) Creatine Kinase 48 U/L (26-192) Troponin I Quantitative 0.021 ng/mL (0.000-0.055) 126.786 ng/mL (0.000-0.055) DE-Khf-C-Type Natriuretic Peptide 287 pg/mL (0-124) Total Protein 5.7 g/dL (6.4-8.2) 6.1 g/dL (6.4-8.2) Albumin 2.5 g/dL (3.4-5.0) 2.8 g/dL (3.4-5.0) Albumin/Globulin Ratio 0.8 (1.0-1.7) Serum Test, Qualitative Negative (NEG) Activated Clotting Time 183 sec (92-181) Glucose (Fingerstick) 105 mg/dL (70-99) Direct Bilirubin < 0.1 mg/dL (0.0-0.2) Triglycerides Level 277 mg/dL (0-150) Cholesterol Level 280 mg/dL (0-200) LDL Cholesterol, Calculated 193 mg/dL (0-100) VLDL Cholesterol, Calculated 55 mg/dL (0-40) Non-HDL Cholesterol Calculated 248 mg/dL (0-129) HDL Cholesterol 32 mg/dL (40-60) Cholesterol/HDL Ratio 8.8 Thyroid Stimulating Hormone (TSH) 0.556 uIU/mL (0.358-3.74) Laboratory Tests Test 10/02/19 18:30 10/02/19 19:18 10/02/19 22:21 10/03/19 05:55 White Blood Count 13.0 x10^3/uL (4.0-11.0) Red Blood Count 4.28 x10^6/uL (3.50-5.40) Hemoglobin 11.6 g/dL (12.0-15.5) Hematocrit 35.3 % (36.0-47.0) Mean Corpuscular Volume 83 fL (79-100) Mean Corpuscular Hemoglobin 27 pg (25-35) Mean Corpuscular Hemoglobin Concent 33 g/dL (31-37) Red Cell Distribution Width 20.7 % (11.5-14.5) Platelet Count 353 x10^3/uL (140-400) Neutrophils (%) (Auto) 63 % (31-73) Lymphocytes (%) (Auto) 28 % (24-48) Monocytes (%) (Auto) 6 % (0-9) Eosinophils (%) (Auto) 2 % (0-3) Basophils (%) (Auto) 1 % (0-3) Neutrophils # (Auto) 8.2 x10^3/uL (1.8-7.7) Lymphocytes # (Auto) 3.7 x10^3/uL (1.0-4.8) Monocytes # (Auto) 0.7 x10^3/uL (0.0-1.1) Eosinophils # (Auto) 0.2 x10^3/uL (0.0-0.7) Basophils # (Auto) 0.1 x10^3/uL (0.0-0.2) Platelet Estimate Adequate (ADEQUATE) Microcytosis Slight Macrocytosis Slight Prothrombin Time 12.5 SEC (11.7-14.0) Prothromb Time International Ratio 1.0 (0.8-1.1) Sodium Level 134 mmol/L (136-145) 138 mmol/L (136-145) Potassium Level 5.0 mmol/L (3.5-5.1) 4.2 mmol/L (3.5-5.1) Chloride Level 102 mmol/L (98-107) 104 mmol/L (98-107) Carbon Dioxide Level 17 mmol/L (21-32) 25 mmol/L (21-32) Anion Gap 15 (6-14) 9 (6-14) Blood Urea Nitrogen 12 mg/dL (7-20) 11 mg/dL (7-20) Creatinine 1.2 mg/dL (0.6-1.0) 0.8 mg/dL (0.6-1.0) Estimated GFR (Cockcroft-Gault) 48.2 76.9 BUN/Creatinine Ratio 10 (6-20) Glucose Level 338 mg/dL (70-99) 106 mg/dL (70-99) Calcium Level 7.8 mg/dL (8.5-10.1) 8.0 mg/dL (8.5-10.1) Magnesium Level 1.8 mg/dL (1.8-2.4) Total Bilirubin 0.1 mg/dL (0.2-1.0) 0.2 mg/dL (0.2-1.0) Aspartate Amino Transf (AST/SGOT) 92 U/L (15-37) 432 U/L (15-37) Alanine Aminotransferase (ALT/SGPT) 77 U/L (14-59) 225 U/L (14-59) Alkaline Phosphatase 131 U/L (46-116) 118 U/L (46-116) Creatine Kinase 48 U/L (26-192) Troponin I Quantitative 0.021 ng/mL (0.000-0.055) 126.786 ng/mL (0.000-0.055) GX-Ffw-C-Type Natriuretic Peptide 287 pg/mL (0-124) Total Protein 5.7 g/dL (6.4-8.2) 6.1 g/dL (6.4-8.2) Albumin 2.5 g/dL (3.4-5.0) 2.8 g/dL (3.4-5.0) Albumin/Globulin Ratio 0.8 (1.0-1.7) Serum Test, Qualitative Negative (NEG) Activated Clotting Time 183 sec (92-181) Glucose (Fingerstick) 105 mg/dL (70-99) Direct Bilirubin < 0.1 mg/dL (0.0-0.2) Triglycerides Level 277 mg/dL (0-150) Cholesterol Level 280 mg/dL (0-200) LDL Cholesterol, Calculated 193 mg/dL (0-100) VLDL Cholesterol, Calculated 55 mg/dL (0-40) Non-HDL Cholesterol Calculated 248 mg/dL (0-129) HDL Cholesterol 32 mg/dL (40-60) Cholesterol/HDL Ratio 8.8 Thyroid Stimulating Hormone (TSH) 0.556 uIU/mL (0.358-3.74) Medications Current Medications Heparin Sodium (Porcine) (Heparin Sodium) 10,000 unit STK-MED ONCE .ROUTE ; Start 10/02/19 at 18:29; Stop 10/02/19 at 18:30; Status DC Heparin Sodium (Porcine) (Heparin Sodium) 4,000 unit 1X ONCE IV Last administered on 10/02/19at 18:33; Start 10/02/19 at 18:30; Stop 10/02/19 at 18:40; Status DC Sodium Chloride 1,000 ml @ 1,000 mls/hr Q1H IV Last administered on 10/02/19at 18:33; Start 10/02/19 at 18:28; Stop 10/02/19 at 19:29; Status DC Phenylephrine HCl (PHENYLEPHRINE in 0.9% NACL PF) 1 mg STK-MED ONCE IV ; Start 10/02/19 at 18:47; Stop 10/02/19 at 18:47; Status DC Dopamine HCl/ Dextrose 250 ml @ 0 mls/hr 1X ONCE IV Last administered on 10/02/19at 19:00; Start 10/02/19 at 19:00; Stop 10/02/19 at 19:01; Status DC Ondansetron HCl (Zofran) 4 mg STK-MED ONCE .ROUTE ; Start 10/02/19 at 18:48; S top 10/02/19 at 18:48; Status DC Heparin Sodium (Porcine) (Heparin Sodium) 10,000 unit STK-MED ONCE .ROUTE ; Start 10/02/19 at 18:59; Stop 10/02/19 at 19:00; Status DC Tirofiban/Sodium Chloride 100 ml @ As Directed STK-MED ONCE IV ; Start 10/02/19 at 19:00; Stop 10/02/19 at 19:00; Status DC Amiodarone HCl (Cordarone) 150 mg STK-MED ONCE .ROUTE ; Start 10/02/19 at 19:00; Stop 10/02/19 at 19:00; Status DC Fentanyl Citrate (Fentanyl 2ml Vial) 100 mcg STK-MED ONCE .ROUTE ; Start 10/02/19 at 19:03; Stop 10/02/19 at 19:03; Status DC Ondansetron HCl (Zofran) 4 mg PRN Q8HRS PRN IV NAUSEA/VOMITING Last administered on 10/02/19at 18:50; Start 10/02/19 at 19:15; Stop 10/03/19 at 19:14 Morphine Sulfate (Morphine Sulfate) 4 mg PRN Q2HR PRN IV PAIN Last administered on 10/03/19at 02:05; Start 10/02/19 at 19:15; Stop 10/03/19 at 19:14 Heparin Sodium/ Sodium Chloride (HEPARIN for ARTERIAL LINE FLUSH) 1,000 unit 1X ONCE IART Last administered on 10/02/19at 19:15; Start 10/02/19 at 19:15; Stop 10/02/19 at 19:29; Status DC Heparin Sodium/ Sodium Chloride (HEPARIN for ARTERIAL LINE FLUSH) 1,000 unit 1X ONCE IART Last administered on 10/02/19at 19:15; Start 10/02/19 at 19:15; Stop 10/02/19 at 19:29; Status DC Fentanyl Citrate (Fentanyl 2ml Vial) 100 mcg 1X ONCE IV Last administered on 10/02/19at 19:05; Start 10/02/19 at 19:15; Stop 10/02/19 at 19:29; Status DC Iodixanol (Visipaque 320) 100 ml 1X ONCE IART Last administered on 10/02/19at 19:15; Start 10/02/19 at 19:15; Stop 10/02/19 at 19:29; Status DC Prasugrel (Effient) 60 mg 1X ONCE PO Last administered on 10/02/19 19:15; Start 10/02/19 at 19:15; Stop 10/02/19 at 19:29; Status DC Heparin Sodium (Porcine) (Heparin Sodium) 2,000 unit 1X ONCE IV Last administered on 10/02/19at 19:05; Start 10/02/19 at 19:15; Stop 10/02/19 at 19:29; Status DC Lidocaine HCl 20 ml 1X ONCE IJ Last administered on 10/02/19at 18:50; Start 10/02/19 at 19:15; Stop 10/02/19 at 19:29; Status DC Tirofiban/Sodium Chloride 100 ml @ 0 mls/hr CONT PRN IV PER PROTOCOL Last administered on 10/02/19at 19:05; Start 10/02/19 at 19:15; Stop 10/03/19 at 13:14 Heparin Sodium/ Sodium Chloride 500 ml @ As Directed STK-MED ONCE .ROUTE ; Start 10/02/19 at 19:29; Stop 10/02/19 at 19:29; Status DC Prasugrel (Effient) 10 mg STK-MED ONCE .ROUTE ; Start 10/02/19 at 19:32; Stop 10/02/19 at 19:32; Status DC Sodium Chloride (Normal Saline Flush) 3 ml QSHIFT PRN IV AFTER MEDS AND BLOOD DRAWS; Start 10/02/19 at 19:45 Aspirin (Ecotrin) 81 mg DAILYWBKFT PO Last administered on 10/03/19at 07:48; Start 10/03/19 at 08:00 Prasugrel (Effient) 10 mg DAILYWBKFT PO Last administered on 10/03/19at 07:49; Start 10/03/19 at 08:00 Atorvastatin Calcium (Lipitor) 40 mg QHS PO Last administered on 10/02/19at 21:26; Start 10/02/19 at 21:00 Acetaminophen (Tylenol) 650 mg PRN Q6HRS PRN PO MILD PAIN / TEMP > 100.3'F; Start 10/02/19 at 19:45 Fentanyl Citrate (Fentanyl 2ml Vial) 50 mcg PRN Q1HR PRN IV MODERATE OR SEVERE PAIN; Start 10/02/19 at 19:45 Nitroglycerin (Nitrostat) 0.4 mg PRN Q5MIN PRN SL CHEST PAIN; Start 10/02/19 at 19:45 Amiodarone HCl 150 mg/Dextrose 103 ml @ 600 mls/hr 1X PRN PRN IV FOR VENTRICULAR TACHYCARDIA; Start 10/02/19 at 19:45 Lidocaine HCl (Lidocaine HCl 2% Abboject) 100 mg 1X PRN PRN IV FOR VENTRICULAR TACHYCARDIA; Start 10/02/19 at 19:45 Atropine Sulfate (ATROPINE 0.5mg SYRINGE) 0.5 mg PRN 1X PRN IV BRADYCARDIA; Start 10/02/19 at 19:45 Oxycodone/ Acetaminophen (Percocet 5/325) 1 tab PRN Q4HRS PRN PO MILD PAIN 1-3; Start 10/02/19 at 19:45 Amiodarone HCl (Cordarone) 150 mg 1X ONCE IVP Last administered on 10/02/19at 19:00; Start 10/02/19 at 19:45; Stop 10/02/19 at 19:51; Status DC Lidocaine HCl (Lidocaine 1% 20ml Vial) 20 ml STK-MED ONCE .ROUTE ; Start 10/02/19 at 20:16; Stop 10/02/19 at 20:16; Status DC Iodixanol (Visipaque 320) 100 ml STK-MED ONCE .ROUTE ; Start 10/02/19 at 20:16; Stop 10/02/19 at 20:16; Status DC Heparin Sodium/ Sodium Chloride 1,500 ml @ As Directed STK-MED ONCE .ROUTE ; Start 10/02/19 at 20:16; Stop 10/02/19 at 20:16; Status DC Bupropion HCl (Wellbutrin Xl) 150 mg DAILYWBKFT PO Last administered on 10/03/19at 07:49; Start 10/03/19 at 08:00 Levothyroxine Sodium (Synthroid) 50 mcg DAILY07 PO Last administered on 10/03/19at 06:31; Start 10/03/19 at 07:00 Quetiapine Fumarate (SEROquel) 25 mg QHS PO Last administered on 10/02/19at 22:37; Start 10/02/19 at 22:00 Folic Acid (Folic Acid) 1 mg DAILY PO Last administered on 10/03/19at 07:48; Start 10/03/19 at 09:00 Insulin Human Lispro (HumaLOG) 0-7 UNITS TIDACHC SQ ; Start 10/03/19 at 07:30 Dextrose (Dextrose 50%-Water Syringe) 12.5 gm PRN Q15MIN PRN IV SEE COMMENTS; Start 10/02/19 at 22:00 Lorazepam (Ativan) 0.5 mg PRN Q8HRS PRN PO ANXIETY / AGITATION; Start 10/02/19 at 22:45 Zolpidem Tartrate (Ambien) 5 mg PRN QHS PRN PO INSOMNIA; Start 10/02/19 at 22:45 Carvedilol (Coreg) 62.5 mg QHS PO ; Start 10/03/19 at 21:00; Stop 10/03/19 at 07:29; Status DC Carvedilol (Coreg) 6.25 mg BIDWMEALS PO Last administered on 10/03/19at 07:48; Start 10/03/19 at 08:00 Lisinopril (Prinivil) 10 mg DAILY PO Last administered on 10/03/19at 07:47; Start 10/03/19 at 07:30 Hydralazine HCl (Apresoline Inj) 10 mg PRN Q4HRS PRN IVP ELEVATED BP, SEE COMMENTS; Start 10/03/19 at 07:30 Active Scripts Active Reported Carvedilol 25 Mg Tablet 62.5 Mg PO HS Seroquel (Quetiapine Fumarate) 25 Mg Tablet 1 Tab PO QHS Synthroid (Levothyroxine Sodium) 50 Mcg Tablet 1 Tab PO DAILY Wellbutrin Xl (Bupropion Hcl) 150 Mg Tab.er.24h 1 Tab PO DAILYWBKFT Folic Acid 20 Mg Capsule 20 Mg PO DAILY Vitals/I & O Vital Sign - Last 24 Hours 10/02/19 10/02/19 10/02/19 10/02/19 18:25 18:30 18:35 18:37 Temp 97.4 97.4 Pulse 36 36 36 34 Resp 18 25 19 18 B/P (MAP) 88/44 (59) 88/44 (59) 68/44 (52) 66/38 (47) Pulse Ox 95 95 98 98 O2 Delivery Nasal Cannula Nasal Cannula Nasal Cannula Nasal Cannula O2 Flow Rate 2.0 2.0 2.0 2.0 10/02/19 10/02/19 10/02/19 10/02/19 19:00 19:05 20:15 20:30 Temp 97.5 97.5 Pulse 75 70 77 Resp 16 20 16 B/P (MAP) 98/55 (69) Pulse Ox 94 95 O2 Delivery Room Air Room Air 10/02/19 10/02/19 10/02/19 10/02/19 20:30 20:30 20:45 21:00 Pulse 72 78 74 Resp 18 18 16 B/P (MAP) 116/56 (76) 130/64 (86) 130/62 (84) Pulse Ox 91 95 95 O2 Delivery Room Air Room Air Room Air Room Air 10/02/19 10/02/19 10/02/19 10/02/19 21:00 22:00 23:00 23:45 Pulse 76 71 Resp 18 18 B/P (MAP) 140/68 (92) 136/70 (92) Pulse Ox 97 96 O2 Delivery Room Air Room Air Room Air 6/1110/03/19 10/03/19 10/03/19 00:00 00:00 01:00 02:00 Temp 97.7 97.7 Pulse 68 66 70 Resp 18 20 18 B/P (MAP) 148/74 (98) 138/72 (94) 139/74 (95) Pulse Ox 96 96 92 O2 Delivery Room Air Room Air Room Air 10/03/19 10/03/19 10/03/19 10/03/19 02:05 02:38 03:00 03:45 Pulse 66 Resp 16 16 16 B/P (MAP) 141/70 (93) Pulse Ox 97 91 90 O2 Delivery Room Air Room Air Room Air Room Air 10/03/19 10/03/19 10/03/19 10/03/19 04:00 04:00 05:00 06:00 Temp 98.3 98.3 Pulse 65 66 66 Resp 14 16 20 B/P (MAP) 158/83 (108) 162/82 (108) 168/86 (113) Pulse Ox 95 92 93 O2 Delivery Room Air Room Air Room Air 10/03/19 10/03/19 10/03/19 07:00 07:47 07:48 Pulse 68 66 68 Resp 22 B/P (MAP) 176/90 (118) 184/92 182/96 Pulse Ox 95 O2 Delivery Room Air Intake and Output 10/02/19 10/02/19 10/03/19 15:00 23:00 07:00 Intake Total 730 ml 100 ml Output Total 750 ml 0 ml Balance -20 ml 100 ml RADHA ERICKSON MD Oct 03, 2019 08:43
[2019-10-03] MEDS ORDERED: PHENYLEPHRINE in 0.9% NACL PF 1 MG/10 ML SYRINGE. IV ONE (08:45)
--- NOTE | 2019-10-03 09:51 | CARD ---
MR#: [id number] Date of Study: 10/02/2019 Ordering Physician: ALEKSANDER GIANG, Referring Physician: ALEKSANDER GIANG, Tech: RT aCri (R) MARIBEL APPROVED REPORT Technologist: RT Cari (R) MARIBEL Nurse: Marie Gan RN Procedure(s) performed: FLUORO TIME: 8.0MIN DOSE: 63 Gycm2 Contrast: 122ml Fent Only Class IV Heart Failure LHC, Coronary angiography Complex PCI of the RCA Temporary pacemaker placement HISTORY The patient is a 48 year-old female with a history of : tobacco history() , hypertension. INDICATION The indication(s) include : STEMI (>0 to less than or equal to 6 hours). [facility] Clinical Frailty Scale [facility] Clinical Frailty Scale: Managing Well Heart Failure Heart Failure: Yes If Yes, Newly Diagnosed: Yes If Yes, HF Type: Diastolic Systolic PROCEDURE NARRATIVE Clinical history: 48-year-old female presenting with worsening chest pain for approximately 3 hours prior to presentati on. Initial EKG in the field revealed inferior ST elevations with reciprocal posterior changes. The [employer] team was activated and the patient was emergently transferred to the cardiac catheterizatio n laboratory. Upon arrival the patient was in cardiogenic shock on inotropic support with a blood pr essure of 60/40. Details of the procedure: Verbal informed consent was obtained from the patient while in the emergency department. The patient was placed in a supine position on the [employer] table. The bilateral groins were prepped and draped in usual sterile fashion. A 5 Kyrgyz sheath was placed in the right common femoral vein via the mod ified Seldinger technique using a J-tip guidewire and an 18-gauge needle under 2% lidocaine local ane sthesia of the groin. Next, a 6 Kyrgyz sheath was placed in the right common femoral artery. Next, a 5 [place] transvenous balloontipped pacer was advanced from the inferior vena cava and placed in the RV septum with appropriate pacing thresholds. Due to significant bradycardia the patient required t ransvenous pacing throughout the procedure. Next diagnostic angiography was performed with a JL4 cat heter. Diagnostic angiography of the RCA was performed with a JR4 guide. Findings: Aorta: 70/40 LVEDP: 22 Left main is a large-caliber vessel with normal angiographic appearance LAD is a large caliber vessel with mild luminal irregularities Left circumflex is a large caliber vessel with mild luminal irregularities First diagonal is a small to moderate caliber vessel with mild luminal irregularities RCA is a large caliber dominant vessel with a proximal 100% occlusion. Interventional technique: Heparin was used for anticoagulation. Tirofiban was also administered. Through a 6 [place] JR4 guide catheter a 0.014 inch pro-water wire was advanced to the distal RCA. Balloon angioplasty was perfor med with a 2.5 x 15 mm balloon. The mid RCA was then stented with a 4.0 x 28 mm Xience drug-eluting stent. The proximal RCA was then stented with a 4.0 x 26 mm Xience stent. Both stents were deployed at 14 drew. Post PCI angiography demonstrated excellent stent expansion with BAM-3 flow in the vess els and no evidence of guidewire related complications. After PCI the patient's rhythm improved and the transvenous pacemaker was able to be removed. A pigtail catheter was used to measure LVEDP. Pul lback was performed. The sheaths were sutured to the skin. The patient was transported to the ICU i n stable but critical condition on ionotropic support BAM Flow BAM Flow (Pre-Intervention): BAM-0 BAM Flow (Post-Intervention): BAM-3 BAM Flow BAM Flow (Pre-Intervention): BAM-0 BAM Flow (Post-Intervention): BAM-3 Conclusion 1. Cardiogenic shock in the setting of inferior posterior STEMI 2. One-vessel coronary artery disease involving proximal occlusion of the RCA. 3. Successful PCI of the proximal and mid RCA with implantation of a 4.0 x 26 mm and a 4.0 x 28 mm X ience drug eluting stents, respectively. 4. Acute systolic and diastolic HF. LVEDP 22 mm Hg. Recommendations ASA 81mg daily Prasugrel 10mg daily High dose statin therapy Cardiac rehab referral when appropriate Signed by : Aleksander Giang, Electronically Approved : 10/03/2019 09:51:19
--- NOTE | 2019-10-03 10:29 | PDOC ---
TEAGAN ALCAZAR DISH UP PERSON 10/03/19 1029: CARDIO Progress Notes Date and Time Date of Service 10/03/19 Time of Evaluation 1120 Subjective Subjective: No shortness of breath, No Palpitations, Other (c/p burning chest pain with lying down. Better when sitting up) Vitals Vitals Vital Signs Date Time Temp Pulse Resp B/P (MAP) Pulse Ox O2 Delivery O2 Flow Rate FiO2 10/03/19 09:44 20 96 Room Air 10/03/19 09:43 66 153/79 10/03/19 08:00 98.4 98.4 10/02/19 18:37 2.0 Weight Weight [ ] Input and Output Intake and Output Intake and Output 10/03/19 07:00 Intake Total 830 ml Output Total 750 ml Balance 80 ml Intake Oral 100 ml IV Total 730 ml Output Urine Total 750 ml Laboratory Labs Laboratory Tests Test 10/02/19 18:30 10/02/19 19:18 10/02/19 22:21 10/03/19 05:55 White Blood Count 13.0 x10^3/uL (4.0-11.0) Red Blood Count 4.28 x10^6/uL (3.50-5.40) Hemoglobin 11.6 g/dL (12.0-15.5) Hematocrit 35.3 % (36.0-47.0) Mean Corpuscular Volume 83 fL (79-100) Mean Corpuscular Hemoglobin 27 pg (25-35) Mean Corpuscular Hemoglobin Concent 33 g/dL (31-37) Red Cell Distribution Width 20.7 % (11.5-14.5) Platelet Count 353 x10^3/uL (140-400) Neutrophils (%) (Auto) 63 % (31-73) Lymphocytes (%) (Auto) 28 % (24-48) Monocytes (%) (Auto) 6 % (0-9) Eosinophils (%) (Auto) 2 % (0-3) Basophils (%) (Auto) 1 % (0-3) Neutrophils # (Auto) 8.2 x10^3/uL (1.8-7.7) Lymphocytes # (Auto) 3.7 x10^3/uL (1.0-4.8) Monocytes # (Auto) 0.7 x10^3/uL (0.0-1.1) Eosinophils # (Auto) 0.2 x10^3/uL (0.0-0.7) Basophils # (Auto) 0.1 x10^3/uL (0.0-0.2) Platelet Estimate Adequate (ADEQUATE) Microcytosis Slight Macrocytosis Slight Prothrombin Time 12.5 SEC (11.7-14.0) Prothromb Time International Ratio 1.0 (0.8-1.1) Sodium Level 134 mmol/L (136-145) 138 mmol/L (136-145) Potassium Level 5.0 mmol/L (3.5-5.1) 4.2 mmol/L (3.5-5.1) Chloride Level 102 mmol/L (98-107) 104 mmol/L (98-107) Carbon Dioxide Level 17 mmol/L (21-32) 25 mmol/L (21-32) Anion Gap 15 (6-14) 9 (6-14) Blood Urea Nitrogen 12 mg/dL (7-20) 11 mg/dL (7-20) Creatinine 1.2 mg/dL (0.6-1.0) 0.8 mg/dL (0.6-1.0) Estimated GFR (Cockcroft-Gault) 48.2 76.9 BUN/Creatinine Ratio 10 (6-20) Glucose Level 338 mg/dL (70-99) 106 mg/dL (70-99) Calcium Level 7.8 mg/dL (8.5-10.1) 8.0 mg/dL (8.5-10.1) Magnesium Level 1.8 mg/dL (1.8-2.4) Total Bilirubin 0.1 mg/dL (0.2-1.0) 0.2 mg/dL (0.2-1.0) Aspartate Amino Transf (AST/SGOT) 92 U/L (15-37) 432 U/L (15-37) Alanine Aminotransferase (ALT/SGPT) 77 U/L (14-59) 225 U/L (14-59) Alkaline Phosphatase 131 U/L (46-116) 118 U/L (46-116) Creatine Kinase 48 U/L (26-192) Troponin I Quantitative 0.021 ng/mL (0.000-0.055) 126.786 ng/mL (0.000-0.055) NN-Jpo-V-Type Natriuretic Peptide 287 pg/mL (0-124) Total Protein 5.7 g/dL (6.4-8.2) 6.1 g/dL (6.4-8.2) Albumin 2.5 g/dL (3.4-5.0) 2.8 g/dL (3.4-5.0) Albumin/Globulin Ratio 0.8 (1.0-1.7) Serum Test, Qualitative Negative (NEG) Activated Clotting Time 183 sec (92-181) Glucose (Fingerstick) 105 mg/dL (70-99) Direct Bilirubin < 0.1 mg/dL (0.0-0.2) Triglycerides Level 277 mg/dL (0-150) Cholesterol Level 280 mg/dL (0-200) LDL Cholesterol, Calculated 193 mg/dL (0-100) VLDL Cholesterol, Calculated 55 mg/dL (0-40) Non-HDL Cholesterol Calculated 248 mg/dL (0-129) HDL Cholesterol 32 mg/dL (40-60) Cholesterol/HDL Ratio 8.8 Thyroid Stimulating Hormone (TSH) 0.556 uIU/mL (0.358-3.74) Physical Exam HEENT: Neck Supple W Full Motion Chest: Symmetric LUNGS: Clear to Auscultation Heart: S1S2, RRR, no murmurs Abdomen: Soft N/T Extremities: 2+ Posterior Tibial, No Edema, Other (right groin arteriotomy site soft, clean, and dry. DRSG intact. Bilateral neurovascular status intact ) Neurology: alert, oriented, follow commands Assessment Assessment 1. Acute inferior STEMI 2. CAD; cath with one-vessel disease. s/p PCI/NILDA to the mid and proximal RCA. 3. Acute on chronic systolic CHF; cath with elevated LVEDP. Appears compensated 4. Cardiogenic shock; improved. Now with accelerated HTN 5. Dyslipidemia 6. Transient bradycardia; resolved s/p PCI 7. Elevated LFTs 8. Tobaccoism; discussed/encouraged cessation 9. Hypothyroidism; TSH on goal 10. GERD Recommendations Echo to assess LV systolic function Secondary prevention including DAPT with ASA/Effient High-dose statin therapy; monitor LFTS Start coreg, lisinopril. Risk stratification modification Cardiac rehab referral Add PPI Supportive care Monitoring overnight Justicifation of Admission Dx: Justifications for Admission: Justification of Admission Dx: Yes ALEKSANDER GIANG MD 10/03/19 1331: CARDIO Progress Notes Plan Plan Pt. seen and examined. Agree with above BEHAVIORAL INTERVENTIONIST note. No acute events overnight. Denies any chest pain R groin is soft, normal pulses. Continue present meds. Echo with normal EF. Plan for DC tomorrow. Thanks TEAGAN ALCAZAR APRN Oct 03, 2019 10:29 ALEKSANDER GIANG MD Oct 03, 2019 13:31
--- NOTE | 2019-10-03 10:42 | CARD ---
MR#: [id number] Date of Study: 10/03/2019 Ordering Physician: DARYL GIANG, Referring Physician: DARYL GIANG, Tech: Diandra Sharp [facility] APPROVED REPORT EXAM: Two-dimensional and M-mode echocardiogram with Doppler and color Doppler. Other Information Quality : Good INDICATION STEMI 2D DIMENSIONS RVDd2.9 (2.9-3.5cm)Left Atrium(2D)3.8 (1.6-4.0cm) IVSd1.2 (0.7-1.1cm)Aortic Root(2D)2.9 (2.0-3.7cm) LVDd4.6 (3.9-5.9cm)LVOT Diameter2.3 (1.8-2.4cm) PWd1.0 (0.7-1.1cm)LVDs2.8 (2.5-4.0cm) FS (%) 39.1 %SV69.0 ml LVEF(%)69.6 (>50%) Aortic Valve AoV Peak Mike.143.0cm/sAoV VTI22.6cm AO Peak GR.8.2mmHgLVOT VTI 19.33cm AO Mean GR.4mmHgAVA (VTI)3.50cm2 Mitral Valve MV E Pfjhgsch47.0cm/sMV E Peak Gr.0mmHg MV DECEL [id number] A Gqcrmgpm99.9cm/s MV E Mean Gr.0mmHgE/A Ratio1.2 Pulmonary Vein S1 Cglmmjps68.0cm/sS2 Skhgfqbn57.24cm/s D2 Vglatkbp48.2cm/s LEFT VENTRICLE The left ventricle is normal size. There is normal left ventricular wall thickness. The left ventricu lar systolic function is normal and the ejection fraction is within normal range. The Ejection Fracti on is 55-60%. There is mild to moderate hypokinesis in the basal inferior wall. The left ventricular diastolic function and filling is normal for age. RIGHT VENTRICLE The right ventricle is normal size. The right ventricular systolic function is normal. ATRIA The left atrium size is normal. The right atrium size is normal. The interatrial septum is intact wit h no evidence for an atrial septal defect or patent foramen ovale as noted on 2-D or Doppler imaging. AORTIC VALVE The aortic valve is normal in structure and function. Doppler and Color Flow revealed no significant aortic regurgitation. There is no significant aortic valvular stenosis. MITRAL VALVE The mitral valve is normal in structure and function. There is no evidence of mitral valve prolapse. There is no mitral valve stenosis. Doppler and Color-flow revealed trace mitral regurgitation. TRICUSPID VALVE The tricuspid valve is normal in structure and function. Doppler and Color Flow revealed no tricuspid valve regurgitation noted. There is no tricuspid valve stenosis. PULMONIC VALVE The pulmonic valve is not well visualized. Doppler and Color Flow revealed no pulmonic valvular regur gitation. There is no pulmonic valvular stenosis. GREAT VESSELS The aortic root is normal in size. The ascending aorta is not well seen. The IVC is normal in size an d collapses >50% with inspiration. PERICARDIAL EFFUSION There is no evidence of significant pericardial effusion. Critical Notification Critical Value: No <Conclusion> The left ventricular systolic function is normal and the ejection fraction is within normal range. Th e Ejection Fraction is 55-60%. There is mild to moderate hypokinesis in the basal inferior wall. Signed by : Daryl Giang, Electronically Approved : 10/03/2019 10:42:04
--- NOTE | 2019-10-03 13:31 | NUR ---
SS following for discharge planning. SS reviewed pt chart and discussed with pt RN. Pt is from home and is currently on room air. Pt CVC status now and moving to room 209. SS will continue to follow for discharge planning.
[2019-10-03] MEDS: PANTOPRAZOLE 40 MG TABLET.DR. PO SCH (13:38)
[2019-10-03] MEDS ORDERED: PANTOPRAZOLE 40 MG TABLET.DR. PO SCH (14:00)
--- NOTE | 2019-10-03 14:03 | NUR ---
Patient to transfer to room 209. Telephone report given to Lori Meng. Medications, and plan of care reviewed. Patient belonging with patient at time of transfer.
[2019-10-03 14:10] LABS: ALBUMIN 2.9 g/dL (3.4-5.0); DIRECT BILIRUBIN 0.1 mg/dL (0.0-0.2); TOTAL BILIRUBIN 0.2 mg/dL (0.2-1.0); TOTAL PROTEIN 6.6 g/dL (6.4-8.2)
[2019-10-03] MEDS: QUEtiapine 25 MG TABLET. PO SCH (20:43)
[2019-10-03] MEDS: ATORVASTATIN CALCIUM 20 MG TABLET PO SCH (20:43)
[2019-10-03] MEDS ORDERED: CARVEDILOL 12.5 MG TABLET. PO SCH (21:00)
[2019-10-04 00:08] LABS: HEMOGLOBIN A1C 5.9 % (4.8-5.6)
[2019-10-04 03:00] VITALS: BP 138/83
[2019-10-04] MEDS: PANTOPRAZOLE 40 MG TABLET.DR. PO SCH (06:07)
[2019-10-04] MEDS: LEVOTHYROXINE 50 MCG TABLET PO SCH (06:07)
[2019-10-04 07:00] VITALS: BP 163/79
[2019-10-04] MEDS: FOLIC ACID 1 MG TABLET. PO SCH (08:17)
[2019-10-04] MEDS: ASPIRIN ENTERIC COATED 81 MG TABLET.DR. PO SCH (08:17)
[2019-10-04] MEDS: PRASUGREL 10 MG TABLET. PO SCH (08:17)
[2019-10-04] MEDS: buPROPion XL 150 MG TAB.ER.24H. PO SCH (08:17)
[2019-10-04] MEDS: LISINOPRIL 10 MG TABLET PO SCH (08:18)
[2019-10-04] MEDS: CARVEDILOL 6.25 MG TABLET. PO SCH ×2 (08:18→17:51)
[2019-10-04 11:00] VITALS: BP 130/65
--- NOTE | 2019-10-04 14:38 | NUR ---
SS following up with discharge planning. SS reviewed pt chart and discussed with pt RN. Pt is currently on room air. Possible discharge today pending cardiology sign off. Discharge to home when ready. SS will continue to follow for discharge planning.
[2019-10-04 15:00] VITALS: BP 119/66
[2019-10-04] MEDS ORDERED: ASPI-612 PO (15:13)
[2019-10-04] MEDS ORDERED: LISI10TA2 PO (15:13)
[2019-10-04] MEDS ORDERED: CARV6.2511 PO (15:13)
[2019-10-04] MEDS ORDERED: PANT40TA77 PO (15:13)
[2019-10-04] MEDS ORDERED: PRAS10TA9 PO (15:13)
[2019-10-04] MEDS ORDERED: METF500T16 PO (15:13)
[2019-10-04] MEDS ORDERED: ATOR20TA58 PO (15:13)
--- NOTE | 2019-10-04 15:15 | PDOC ---
PROGRESS NOTES Chief Complaint Chief Complaint A/P: ST elevation myocardial infarction (STEMI) of inferior wall - s/p x2 NILDA to RCA per Dr. Marti with excellent improvement Cardiogenic shock - quickly improved after revascularization Chest pain - 2/2 STEMI TONY - vasomotor nephropathy from hypotension related to STEMI, improved. COPD (chronic obstructive pulmonary disease) - prn nebs ordered. Smoking cessation counseling performed bedside Hypothyroidism - TSH WNL, will cont levothyroxine dosing Pre-diabetes - A1c 5.9. Will need metformin to prevent progression to diabetes Depression - cont wellbutrin, seroquel, add prn lorazepam while inpatient Obesity - counseled on weight loss, taking "detox tea" currently History of Present Illness History of Present Illness Ms Perez is a 48 yo F w/ PMHx COPD, hypothyroidism, depression, and smoker brought in via EMS for inferior wall STEMI. Patient reports she is having bilateral upper chest pressure nonradiating with associated shortness of breath that started at 5 PM 10/01. EMS gave 324 chewable asa and 100mcg fentanyl, no nitro. Patient recently started a "detox tea" for help with weight loss. 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 BP noted 85/51, HR 45 bpm, 96% RA, ST elevations in 2, 3, aVF with reciprocal depressions in lead I and aVL, QTC 450, patient bradycardic at 46 bpm.CXR with enlarged cardiac silhouette. Concern for inferior wall STEMI in the setting of hypotension and bradycardia. Heparin bolus started in ED. Two peripheral IVs placed with NS bolus. No change with atropine 0.5mg given by ems. Pt emergently transported to laborer tin can w/Dr. Redd, loaded with effient, heparin. Troponin in normal range initially. Cardiac catheterization demonstrated a 1-vessel coronary artery disease with acute proximal RCA occlusion. This was treated with 2 non-overlapping stents in the proximal and mid segment. She required dopamine and phenylephrine post-cath temporarily. 10/03: Seen post-cath her blood pressure has normalized and she is in excellent spirits. Chest pain free. Trop 126, LFTS elevated, LDL 193. Cr improved from 1.2 to 0.8. She has some abdominal cramping she thinks is similar to her menstrual pains. Had some CP when she sat up that resolved quickly. Discussed her dosing of coreg at home as 62.5mg QHS only, was bradycardic on admission, changed to 6.25mg BID today. Echo: The left ventricular systolic function is normal and the ejection fraction is within normal range. The Ejection Fraction is 55-60%. There is mild to moderate hypokinesis in the basal inferior wall. BP better controlled. Nearly pain free. No SOB. She is asking to go home. Started on BB, ASA, Effient, lisinopril, atorvastatin. A1c 5.9 Vitals Vitals Vital Signs Date Time Temp Pulse Resp B/P (MAP) Pulse Ox O2 Delivery O2 Flow Rate FiO2 10/04/19 11:00 98.0 61 16 130/65 (86) 97 Room Air 98.0 Physical Exam General: Alert, Oriented X3, Cooperative, No acute distress Abdomen: Normal bowel sounds, Soft, No tenderness, No hepatosplenomegaly, No masses Extremities: No clubbing, No cyanosis, No edema, Normal pulses, No tenderness/swelling Skin: No rashes, No breakdown, No significant lesion Assessment and Plan Assessmemt and Plan Problems Medical Problems: (1) Chest pain Status: Acute (2) COPD (chronic obstructive pulmonary disease) Status: Acute (3) Hyperglycemia Status: Acute (4) Hypothyroidism Status: Acute (5) ST elevation myocardial infarction (STEMI) of inferior wall Status: Acute Comment Review of Relevant I have reviewed the following items serjio (where applicable) has been applied. Labs Laboratory Tests Test 10/02/19 18:30 10/02/19 19:18 10/02/19 22:21 10/03/19 05:55 White Blood Count 13.0 x10^3/uL (4.0-11.0) Red Blood Count 4.28 x10^6/uL (3.50-5.40) Hemoglobin 11.6 g/dL (12.0-15.5) Hematocrit 35.3 % (36.0-47.0) Mean Corpuscular Volume 83 fL (79-100) Mean Corpuscular Hemoglobin 27 pg (25-35) Mean Corpuscular Hemoglobin Concent 33 g/dL (31-37) Red Cell Distribution Width 20.7 % (11.5-14.5) Platelet Count 353 x10^3/uL (140-400) Neutrophils (%) (Auto) 63 % (31-73) Lymphocytes (%) (Auto) 28 % (24-48) Monocytes (%) (Auto) 6 % (0-9) Eosinophils (%) (Auto) 2 % (0-3) Basophils (%) (Auto) 1 % (0-3) Neutrophils # (Auto) 8.2 x10^3/uL (1.8-7.7) Lymphocytes # (Auto) 3.7 x10^3/uL (1.0-4.8) Monocytes # (Auto) 0.7 x10^3/uL (0.0-1.1) Eosinophils # (Auto) 0.2 x10^3/uL (0.0-0.7) Basophils # (Auto) 0.1 x10^3/uL (0.0-0.2) Platelet Estimate Adequate (ADEQUATE) Microcytosis Slight Macrocytosis Slight Prothrombin Time 12.5 SEC (11.7-14.0) Prothromb Time International Ratio 1.0 (0.8-1.1) Sodium Level 134 mmol/L (136-145) 138 mmol/L (136-145) Potassium Level 5.0 mmol/L (3.5-5.1) 4.2 mmol/L (3.5-5.1) Chloride Level 102 mmol/L (98-107) 104 mmol/L (98-107) Carbon Dioxide Level 17 mmol/L (21-32) 25 mmol/L (21-32) Anion Gap 15 (6-14) 9 (6-14) Blood Urea Nitrogen 12 mg/dL (7-20) 11 mg/dL (7-20) Creatinine 1.2 mg/dL (0.6-1.0) 0.8 mg/dL (0.6-1.0) Estimated GFR (Cockcroft-Gault) 48.2 76.9 BUN/Creatinine Ratio 10 (6-20) Glucose Level 338 mg/dL (70-99) 106 mg/dL (70-99) Hemoglobin A1c 5.9 % (4.8-5.6) Calcium Level 7.8 mg/dL (8.5-10.1) 8.0 mg/dL (8.5-10.1) Magnesium Level 1.8 mg/dL (1.8-2.4) Total Bilirubin 0.1 mg/dL (0.2-1.0) 0.2 mg/dL (0.2-1.0) Aspartate Amino Transf (AST/SGOT) 92 U/L (15-37) 432 U/L (15-37) Alanine Aminotransferase (ALT/SGPT) 77 U/L (14-59) 225 U/L (14-59) Alkaline Phosphatase 131 U/L (46-116) 118 U/L (46-116) Creatine Kinase 48 U/L (26-192) Troponin I Quantitative 0.021 ng/mL (0.000-0.055) 126.786 ng/mL (0.000-0.055) QL-Fvp-Q-Type Natriuretic Peptide 287 pg/mL (0-124) Total Protein 5.7 g/dL (6.4-8.2) 6.1 g/dL (6.4-8.2) Albumin 2.5 g/dL (3.4-5.0) 2.8 g/dL (3.4-5.0) Albumin/Globulin Ratio 0.8 (1.0-1.7) Serum Test, Qualitative Negative (NEG) Activated Clotting Time 183 sec (92-181) Glucose (Fingerstick) 105 mg/dL (70-99) Direct Bilirubin < 0.1 mg/dL (0.0-0.2) Triglycerides Level 277 mg/dL (0-150) Cholesterol Level 280 mg/dL (0-200) LDL Cholesterol, Calculated 193 mg/dL (0-100) VLDL Cholesterol, Calculated 55 mg/dL (0-40) Non-HDL Cholesterol Calculated 248 mg/dL (0-129) HDL Cholesterol 32 mg/dL (40-60) Cholesterol/HDL Ratio 8.8 Thyroid Stimulating Hormone (TSH) 0.556 uIU/mL (0.358-3.74) Test 10/03/19 11:50 10/03/19 13:45 Glucose (Fingerstick) 113 mg/dL (70-99) Total Bilirubin 0.2 mg/dL (0.2-1.0) Direct Bilirubin 0.1 mg/dL (0.0-0.2) Aspartate Amino Transf (AST/SGOT) 360 U/L (15-37) Alanine Aminotransferase (ALT/SGPT) 221 U/L (14-59) Alkaline Phosphatase 123 U/L (46-116) Total Protein 6.6 g/dL (6.4-8.2) Albumin 2.9 g/dL (3.4-5.0) Medications Current Medications Heparin Sodium (Porcine) (Heparin Sodium) 10,000 unit STK-MED ONCE .ROUTE ; Start 10/02/19 at 18:29; Stop 10/02/19 at 18:30; Status DC Heparin Sodium (Porcine) (Heparin Sodium) 4,000 unit 1X ONCE IV Last administered on 10/02/19at 18:33; Start 10/02/19 at 18:30; Stop 10/02/19 at 18:40; Status DC Sodium Chloride 1,000 ml @ 1,000 mls/hr Q1H IV Last administered on 10/02/19at 18:33; Start 10/02/19 at 18:28; Stop 10/02/19 at 19:29; Status DC Phenylephrine HCl (PHENYLEPHRINE in 0.9% NACL PF) 1 mg STK-MED ONCE IV ; Start 10/02/19 at 18:47; Stop 10/02/19 at 18:47; Status DC Dopamine HCl/ Dextrose 250 ml @ 0 mls/hr 1X ONCE IV Last administered on 10/02/19at 19:00; Start 10/02/19 at 19:00; Stop 10/02/19 at 19:01; Status DC Ondansetron HCl (Zofran) 4 mg STK-MED ONCE .ROUTE ; Start 10/02/19 at 18:48; Stop 10/02/19 at 18:48; Status DC Heparin Sodium (Porcine) (Heparin Sodium) 10,000 unit STK-MED ONCE .ROUTE ; Start 10/02/19 at 18:59; Stop 10/02/19 at 19:00; Status DC Tirofiban/Sodium Chloride 100 ml @ As Directed STK-MED ONCE IV ; Start 10/02/19 at 19:00; Stop 10/02/19 at 19:00; Status DC Amiodarone HCl (Cordarone) 150 mg STK-MED ONCE .ROUTE ; Start 10/02/19 at 19:00; Stop 10/02/19 at 19:00; Status DC Fentanyl Citrate (Fentanyl 2ml Vial) 100 mcg STK-MED ONCE .ROUTE ; Start 10/02/19 at 19:03; Stop 10/02/19 at 19:03; Status DC Ondansetron HCl (Zofran) 4 mg PRN Q8HRS PRN IV NAUSEA/VOMITING Last administered on 10/02/19 18:50; Start 10/02/19 at 19:15; Stop 10/03/19 at 19:14; Status DC Morphine Sulfate (Morphine Sulfate) 4 mg PRN Q2HR PRN IV PAIN Last administered on 10/03/19 02:05; Start 10/02/19 at 19:15; Stop 10/03/19 at 19:14; Status DC Heparin Sodium/ Sodium Chloride (HEPARIN for ARTERIAL LINE FLUSH) 1,000 unit 1X ONCE IART Last administered on 10/02/19 19:15; Start 10/02/19 at 19:15; Stop 10/02/19 at 19:29; Status DC Heparin Sodium/ Sodium Chloride (HEPARIN for ARTERIAL LINE FLUSH) 1,000 unit 1X ONCE IART Last administered on 10/02/19 19:15; Start 10/02/19 at 19:15; Stop 10/02/19 at 19:29; Status DC Fentanyl Citrate (Fentanyl 2ml Vial) 100 mcg 1X ONCE IV Last administered on 10/02/19 19:05; Start 10/02/19 at 19:15; Stop 10/02/19 at 19:29; Status DC Iodixanol (Visipaque 320) 100 ml 1X ONCE IART Last administered on 10/02/19 19:15; Start 10/02/19 at 19:15; Stop 10/02/19 at 19:29; Status DC Prasugrel (Effient) 60 mg 1X ONCE PO Last administered on 10/02/19 19:15; Start 10/02/19 at 19:15; Stop 10/02/19 at 19:29; Status DC Heparin Sodium (Porcine) (Heparin Sodium) 2,000 unit 1X ONCE IV Last administered on 10/02/19 19:05; Start 10/02/19 at 19:15; Stop 10/02/19 at 19:29; Status DC Lidocaine HCl 20 ml 1X ONCE IJ Last administered on 10/02/19 18:50; Start 10/02/19 at 19:15; Stop 10/02/19 at 19:29; Status DC Tirofiban/Sodium Chloride 100 ml @ 0 mls/hr CONT PRN IV PER PROTOCOL Last administered on 10/02/19at 19:05; Start 10/02/19 at 19:15; Stop 10/03/19 at 13:14; Status DC Heparin Sodium/ Sodium Chloride 500 ml @ As Directed STK-MED ONCE .ROUTE ; Start 10/02/19 at 19:29; Stop 10/02/19 at 19:29; Status DC Prasugrel (Effient) 10 mg STK-MED ONCE .ROUTE ; Start 10/02/19 at 19:32; Stop 10/02/19 at 19:32; Status DC Sodium Chloride (Normal Saline Flush) 3 ml QSHIFT PRN IV AFTER MEDS AND BLOOD DRAWS; Start 10/02/19 at 19:45 Aspirin (Ecotrin) 81 mg DAILYWBKFT PO Last administered on 10/04/19at 08:17; Start 10/03/19 at 08:00 Prasugrel (Effient) 10 mg DAILYWBKFT PO Last administered on 10/04/19at 08:17; Start 10/03/19 at 08:00 Atorvastatin Calcium (Lipitor) 40 mg QHS PO Last administered on 10/03/19at 20:43; Start 10/02/19 at 21:00 Acetaminophen (Tylenol) 650 mg PRN Q6HRS PRN PO TEMP > 100.3'F; Start 10/02/19 at 19:45 Fentanyl Citrate (Fentanyl 2ml Vial) 50 mcg PRN Q1HR PRN IV MODERATE OR SEVERE PAIN Last administered on 10/03/19at 09:44; Start 10/02/19 at 19:45 Nitroglycerin (Nitrostat) 0.4 mg PRN Q5MIN PRN SL CHEST PAIN; Start 10/02/19 at 19:45 Amiodarone HCl 150 mg/Dextrose 103 ml @ 600 mls/hr 1X PRN PRN IV FOR VENTRICULAR TACHYCARDIA; Start 10/02/19 at 19:45 Lidocaine HCl (Lidocaine HCl 2% Abboject) 100 mg 1X PRN PRN IV FOR VENTRICULAR TACHYCARDIA; Start 10/02/19 at 19:45 Atropine Sulfate (ATROPINE 0.5mg SYRINGE) 0.5 mg PRN 1X PRN IV BRADYCARDIA; Start 10/02/19 at 19:45 Oxycodone/ Acetaminophen (Percocet 5/325) 1 tab PRN Q4HRS PRN PO MILD PAIN 1-3 Last administered on 10/03/19at 13:39; Start 10/02/19 at 19:45 Amiodarone HCl (Cordarone) 150 mg 1X ONCE IVP Last administered on 10/02/19at 19:00; Start 10/02/19 at 19:45; Stop 10/02/19 at 19:51; Status DC Lidocaine HCl (Lidocaine 1% 20ml Vial) 20 ml STK-MED ONCE .ROUTE ; Start 10/02/19 at 20:16; Stop 10/02/19 at 20:16; Status DC Iodixanol (Visipaque 320) 100 ml STK-MED ONCE .ROUTE ; Start 10/02/19 at 20:16; Stop 10/02/19 at 20:16; Status DC Heparin Sodium/ Sodium Chloride 1,500 ml @ As Directed STK-MED ONCE .ROUTE ; Start 10/02/19 at 20:16; Stop 10/02/19 at 20:16; Status DC Bupropion HCl (Wellbutrin Xl) 150 mg DAILYWBKFT PO Last administered on 10/04/19at 08:17; Start 10/03/19 at 08:00 Levothyroxine Sodium (Synthroid) 50 mcg DAILY07 PO Last administered on 10/04/19at 06:07; Start 10/03/19 at 07:00 Quetiapine Fumarate (SEROquel) 25 mg QHS PO Last administered on 10/03/19at 20:43; Start 10/02/19 at 22:00 Folic Acid (Folic Acid) 1 mg DAILY PO Last administered on 10/04/19at 08:17; Start 10/03/19 at 09:00 Insulin Human Lispro (HumaLOG) 0-7 UNITS TIDACHC SQ ; Start 10/03/19 at 07:30; Stop 10/03/19 at 14:09; Status DC Dextrose (Dextrose 50%-Water Syringe) 12.5 gm PRN Q15MIN PRN IV SEE COMMENTS; Start 10/02/19 at 22:00; Stop 10/03/19 at 14:09; Status DC Lorazepam (Ativan) 0.5 mg PRN Q8HRS PRN PO ANXIETY / AGITATION; Start 10/02/19 at 22:45 Zolpidem Tartrate (Ambien) 5 mg PRN QHS PRN PO INSOMNIA; Start 10/02/19 at 22:45 Carvedilol (Coreg) 62.5 mg QHS PO ; Start 10/03/19 at 21:00; Stop 10/03/19 at 07:29; Status DC Carvedilol (Coreg) 6.25 mg BIDWMEALS PO Last administered on 10/04/19at 08:18; Start 10/03/19 at 08:00 Lisinopril (Prinivil) 10 mg DAILY PO Last administered on 10/04/19at 08:18; Start 10/03/19 at 07:30 Hydralazine HCl (Apresoline Inj) 10 mg PRN Q4HRS PRN IVP ELEVATED BP, SEE COMMENTS Last administered on 10/03/19at 09:43; Start 10/03/19 at 07:30 Phenylephrine HCl (PHENYLEPHRINE in 0.9% NACL PF) 1 mg 1X ONCE IV ; Start 10/03/19 at 08:45; Stop 10/03/19 at 08:46; Status Cancel Phenylephrine HCl (PHENYLEPHRINE in 0.9% NACL PF) 1 mg 1X ONCE IV Last administered on 10/02/19at 19:00; Start 10/02/19 at 19:00; Stop 10/03/19 at 08:43; Status DC Pantoprazole Sodium (Protonix) 40 mg DAILYAC PO Last administered on 10/04/19at 06:07; Start 10/03/19 at 12:45 Pantoprazole Sodium (Protonix) 40 mg DAILYAC PO ; Start 10/03/19 at 14:00; Stop 10/03/19 at 13:47; Status DC Active Scripts Active Reported Carvedilol 25 Mg Tablet 62.5 Mg PO HS Seroquel (Quetiapine Fumarate) 25 Mg Tablet 1 Tab PO QHS Synthroid (Levothyroxine Sodium) 50 Mcg Tablet 1 Tab PO DAILY Wellbutrin Xl (Bupropion Hcl) 150 Mg Tab.er.24h 1 Tab PO DAILYWBKFT Folic Acid 20 Mg Capsule 20 Mg PO DAILY Vitals/I & O Vital Sign - Last 24 Hours 10/03/19 10/03/19 10/03/19 10/03/19 17:19 17:19 19:10 19:26 Temp 97.8 97.8 Pulse 66 66 Resp 18 B/P (MAP) 120/64 110/56 (74) Pulse Ox 95 O2 Delivery Room Air Room Air Room Air 10/03/19 10/04/19 10/04/19 10/04/19 23:00 03:00 07:00 08:00 Temp 98.7 97.9 97.8 98.7 97.9 97.8 Pulse 66 66 61 Resp 16 16 16 B/P (MAP) 138/67 (90) 138/83 (101) 163/79 (107) Pulse Ox 93 93 97 O2 Delivery Room Air Room Air Room Air Room Air 10/04/19 10/04/19 10/04/19 08:18 08:18 11:00 Temp 98.0 98.0 Pulse 62 62 61 Resp 16 B/P (MAP) 163/79 163/79 130/65 (86) Pulse Ox 97 O2 Delivery Room Air Intake and Output 10/03/19 10/03/19 10/04/19 15:00 23:00 07:00 Intake Total 240 ml 240 ml 740 ml Output Total 400 ml 1500 ml Balance -160 ml 240 ml -760 ml RADHA ERICKSON MD Oct 04, 2019 15:15
--- NOTE | 2019-10-04 16:05 | PDOC3 ---
Discharge Summary Visit Information Date of Admission: Oct 02, 2019 Date of Discharge: Oct 04, 2019 Admitting Diagnosis: STEMI Final Diagnosis Problems Medical Problems: (1) Chest pain Status: Acute (2) COPD (chronic obstructive pulmonary disease) Status: Acute (3) Hyperglycemia Status: Acute (4) Hypothyroidism Status: Acute (5) ST elevation myocardial infarction (STEMI) of inferior wall Status: Acute Brief Hospital Course Allergies Allergies Coded Allergies Type Severity Reaction Last Updated Verified No Known Drug Allergies 10/02/19 No Vital Signs Vital Signs Date Time Temp Pulse Resp B/P (MAP) Pulse Ox O2 Delivery O2 Flow Rate FiO2 10/04/19 15:00 98.0 61 16 119/66 (83) 97 Room Air 98.0 Lab Results Laboratory Tests Test 10/02/19 18:30 10/02/19 19:18 10/02/19 22:21 10/03/19 05:55 White Blood Count 13.0 x10^3/uL (4.0-11.0) Red Blood Count 4.28 x10^6/uL (3.50-5.40) Hemoglobin 11.6 g/dL (12.0-15.5) Hematocrit 35.3 % (36.0-47.0) Mean Corpuscular Volume 83 fL (79-100) Mean Corpuscular Hemoglobin 27 pg (25-35) Mean Corpuscular Hemoglobin Concent 33 g/dL (31-37) Red Cell Distribution Width 20.7 % (11.5-14.5) Platelet Count 353 x10^3/uL (140-400) Neutrophils (%) (Auto) 63 % (31-73) Lymphocytes (%) (Auto) 28 % (24-48) Monocytes (%) (Auto) 6 % (0-9) Eosinophils (%) (Auto) 2 % (0-3) Basophils (%) (Auto) 1 % (0-3) Neutrophils # (Auto) 8.2 x10^3/uL (1.8-7.7) Lymphocytes # (Auto) 3.7 x10^3/uL (1.0-4.8) Monocytes # (Auto) 0.7 x10^3/uL (0.0-1.1) Eosinophils # (Auto) 0.2 x10^3/uL (0.0-0.7) Basophils # (Auto) 0.1 x10^3/uL (0.0-0.2) Platelet Estimate Adequate (ADEQUATE) Microcytosis Slight Macrocytosis Slight Prothrombin Time 12.5 SEC (11.7-14.0) Prothromb Time International Ratio 1.0 (0.8-1.1) Sodium Level 134 mmol/L (136-145) 138 mmol/L (136-145) Potassium Level 5.0 mmol/L (3.5-5.1) 4.2 mmol/L (3.5-5.1) Chloride Level 102 mmol/L (98-107) 104 mmol/L (98-107) Carbon Dioxide Level 17 mmol/L (21-32) 25 mmol/L (21-32) Anion Gap 15 (6-14) 9 (6-14) Blood Urea Nitrogen 12 mg/dL (7-20) 11 mg/dL (7-20) Creatinine 1.2 mg/dL (0.6-1.0) 0.8 mg/dL (0.6-1.0) Estimated GFR (Cockcroft-Gault) 48.2 76.9 BUN/Creatinine Ratio 10 (6-20) Glucose Level 338 mg/dL (70-99) 106 mg/dL (70-99) Hemoglobin A1c 5.9 % (4.8-5.6) Calcium Level 7.8 mg/dL (8.5-10.1) 8.0 mg/dL (8.5-10.1) Magnesium Level 1.8 mg/dL (1.8-2.4) Total Bilirubin 0.1 mg/dL (0.2-1.0) 0.2 mg/dL (0.2-1.0) Aspartate Amino Transf (AST/SGOT) 92 U/L (15-37) 432 U/L (15-37) Alanine Aminotransferase (ALT/SGPT) 77 U/L (14-59) 225 U/L (14-59) Alkaline Phosphatase 131 U/L (46-116) 118 U/L (46-116) Creatine Kinase 48 U/L (26-192) Troponin I Quantitative 0.021 ng/mL (0.000-0.055) 126.786 ng/mL (0.000-0.055) DB-Ank-I-Type Natriuretic Peptide 287 pg/mL (0-124) Total Protein 5.7 g/dL (6.4-8.2) 6.1 g/dL (6.4-8.2) Albumin 2.5 g/dL (3.4-5.0) 2.8 g/dL (3.4-5.0) Albumin/Globulin Ratio 0.8 (1.0-1.7) Serum Test, Qualitative Negative (NEG) Activated Clotting Time 183 sec (92-181) Glucose (Fingerstick) 105 mg/dL (70-99) Direct Bilirubin < 0.1 mg/dL (0.0-0.2) Triglycerides Level 277 mg/dL (0-150) Cholesterol Level 280 mg/dL (0-200) LDL Cholesterol, Calculated 193 mg/dL (0-100) VLDL Cholesterol, Calculated 55 mg/dL (0-40) Non-HDL Cholesterol Calculated 248 mg/dL (0-129) HDL Cholesterol 32 mg/dL (40-60) Cholesterol/HDL Ratio 8.8 Thyroid Stimulating Hormone (TSH) 0.556 uIU/mL (0.358-3.74) Test 10/03/19 11:50 10/03/19 13:45 Glucose (Fingerstick) 113 mg/dL (70-99) Total Bilirubin 0.2 mg/dL (0.2-1.0) Direct Bilirubin 0.1 mg/dL (0.0-0.2) Aspartate Amino Transf (AST/SGOT) 360 U/L (15-37) Alanine Aminotransferase (ALT/SGPT) 221 U/L (14-59) Alkaline Phosphatase 123 U/L (46-116) Total Protein 6.6 g/dL (6.4-8.2) Albumin 2.9 g/dL (3.4-5.0) Brief Hospital Course Ms Perez is a 48 yo F w/ PMHx COPD, hypothyroidism, depression, and smoker brought in via EMS for inferior wall STEMI. Patient reports she is having bilateral upper chest pressure nonradiating with associated shortness of breath that started at 5 PM 10. EMS gave 324 chewable asa and 100mcg fentanyl, no nitro. Patient recently started a "detox tea" for help with weight loss. 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 BP noted 85/51, HR 45 bpm, 96% RA, ST elevations in 2, 3, aVF with reciprocal depressions in lead I and aVL, QTC 450, patient bradycardic at 46 bpm.CXR with enlarged cardiac silhouette. Concern for inferior wall STEMI in the setting of hypotension and bradycardia. Heparin bolus started in ED. Two peripheral IVs placed with NS bolus. No change with atropine 0.5mg given by ems. Pt emergently transported to labor economics teacher w/Dr. Redd, loaded with effient, heparin. Troponin in normal range initially. Cardiac catheterization demonstrated a 1-vessel coronary artery disease with acute proximal RCA occlusion. This was treated with 2 non-overlapping stents in the proximal and mid segment. She required dopamine and phenylephrine post-cath temporarily. 10/03: Seen post-cath her blood pressure has normalized and she is in excellent spirits. Chest pain free. Trop 126, LFTS elevated, LDL 193. Cr improved from 1.2 to 0.8. She has some abdominal cramping she thinks is similar to her menstrual pains. Had some CP when she sat up that resolved quickly. Discussed her dosing of coreg at home as 62.5mg QHS only, was bradycardic on admission, changed to 6.25mg BID today. Echo: The left ventricular systolic function is normal and the ejection fraction is within normal range. The Ejection Fraction is 55-60%. There is mild to moderate hypokinesis in the basal inferior wall. BP better controlled. Nearly pain free. No SOB. She is asking to go home. Started on BB, ASA, Effient, lisinopril, atorvastatin. A1c 5.9. D/w cardiology ok to d/c. Problem list: ST elevation myocardial infarction (STEMI) of inferior wall - s/p x2 NILDA to RCA per Dr. Marti with excellent improvement Cardiogenic shock - quickly improved after revascularization Chest pain - 2/2 STEMI TONY - vasomotor nephropathy from hypotension related to STEMI, improved. COPD (chronic obstructive pulmonary disease) - prn nebs ordered. Smoking cessation counseling performed bedside Hypothyroidism - TSH WNL, will cont levothyroxine dosing Pre-diabetes - A1c 5.9. Will need metformin to prevent progression to diabetes Depression - cont wellbutrin, seroquel, add prn lorazepam while inpatient Obesity - counseled on weight loss, taking "detox tea" currently Greater than 30 minutes spent on d/c Discharge Information Condition at Discharge: Improved Follow Up: Weeks (1) Disposition/Orders: D/C to Home Scheduled Aspirin (Aspirin Ec) 81 Mg Tablet.dr, 81 MG PO DAILYWBKFT for CAD for 90 Days, #90 Ref 3 Prescribed by: RADHA ERICKSON MD on 10/04/191512 Atorvastatin Calcium (Atorvastatin Calcium) 20 Mg Tablet, 40 MG PO QHS for HLD/CAD for 30 Days, #60 Ref 2 Prescribed by: RADHA ERICKSON MD on 10/04/193 Bupropion Hcl (Wellbutrin Xl) 150 Mg Tab.er.24h, 1 TAB PO DAILYWBKFT for depression, #30 Ref 2 (Reported) Entered as Reported by: KATHERINE CHERY RN on 10/02/192144 Last Taken: UNKNOWN on Unknown Date & Time Last Action: Continued on 10/02/192149 by RADHA ERICKSON MD Carvedilol (Carvedilol ) 6.25 Mg Tablet, 6.25 MG PO BIDWMEALS for CAD for 30 Days, #60 Ref 2 Prescribed by: RADHA ERICKSON MD on 10/04/191512 Folic Acid (Folic Acid) 20 Mg Capsule, 20 MG PO DAILY for supplement, (Reported) Entered as Reported by: KATHERINE CHERY RN on 10/02/192144 Last Taken: UNKNOWN on Unknown Date & Time Last Action: Converted on 10/02/192149 by RADHA ERICKSON MD Levothyroxine Sodium (Synthroid) 50 Mcg Tablet, 1 TAB PO DAILY for hypothyroid, #30 Ref 5 (Reported) Entered as Reported by: KATHERINE CHERY RN on 10/02/192144 Last Taken: UNKNOWN on Unknown Date & Time Last Action: Continued on 10/02/192149 by RADHA ERICKSON MD Lisinopril (Lisinopril) 10 Mg Tablet, 10 MG PO DAILY for CAD for 30 Days, #30 Ref 2 Prescribed by: RADHA ERICKSON MD on 10/04/193 Metformin Hcl (Metformin Hcl) 500 Mg Tablet, 500 MG PO BIDWMEALS for ANTI- DIABETIC for 30 Days, #60 Ref 2 Prescribed by: RADHA ERICKSON MD on 10/04/193 Pantoprazole Sodium (Pantoprazole Sodium ) 40 Mg Tablet.dr, 40 MG PO DAILYAC for GERD for 30 Days, #30 Ref 2 Prescribed by: RADHA ERICKSON MD on 10/04/19 1513 Prasugrel Hcl (Effient) 10 Mg Tablet, 10 MG PO DAILYWBKFT for CAD for 30 Days, #30 Ref 11 Prescribed by: RADHA ERICKSON MD on 10/04/19 1513 Quetiapine Fumarate (Seroquel) 25 Mg Tablet, 1 TAB PO QHS for sleep, #30 Ref 2 (Reported) Entered as Reported by: KATHERINE CHERY RN on 10/02/192144 Last Taken: UNKNOWN on Unknown Date & Time Last Action: Continued on 10/02/192149 by RADHA ERICKSON MD Discontinued Medications Carvedilol (Carvedilol) 25 Mg Tablet, 62.5 MG PO HS for CARDIAC, (Reported) Entered as Reported by: KATHERINE CHERY RN on 10/02/192204 Last Taken: UNKNOWN on Unknown Date & Time Last Action: Converted on 10/03/19 0216 by KATHERINE CHERY RN Justicifation of Admission Dx: Justifications for Admission: Justification of Admission Dx: Yes RADHA ERICKSON MD Oct 04, 2019 16:04
[2019-10-04 17:51] VITALS: BP 119/66
--- NOTE | 2019-10-04 19:45 | NUR ---
Discharge Note: MARIETTA DE LEON [address] Discharge instructions and discharge home medications reviewed with Patient and a copy given. All questions have been answered and understanding verbalized. The following instructions and handouts were given: follow up, diet, BP, blood sugar, bleeding, post cath, effient at legends not Jac Fried CP, DC in woman. Discontinued lines and drains: IV removed, no lines present at discharge. Patient discharged to Home. ambulated to family members private vehicle. Addendum: 10/04/19 at 2033 by KAMILLA TRACY RN Stent card not with patient. she may come to the unit this weekend to pick it up. If still her on Monday it will be mailed to her. Spoke to her on the phone at 2029 on 10/04/19
--- NOTE | 2019-10-04 20:36 | NUR ---
Patient says Dr. Marti gave her instructions on exercising at home during the Covid-19 closure of rehab.
--- NOTE | 2019-10-04 23:28 | PDOC ---
CARDIOLOGY PROGRESS NOTE SUBJECTIVE: No new events overnight. Patient states she is feeling really good. Denies any pain. No syncope or palpitations. OBJECTIVE: Vital Signs/I&O: Vital Signs Date Time Temp Pulse Resp B/P (MAP) Pulse Ox O2 Delivery O2 Flow Rate FiO2 10/04/19 17:51 61 119/66 10/04/19 15:00 98.0 16 97 Room Air 98.0 I & O 10/03/19 10/03/19 10/04/19 15:00 23:00 07:00 Intake Total 240 ml 240 ml 740 ml Output Total 400 ml 1500 ml Balance -160 ml 240 ml -760 ml Objective: GEN.: No apparent distress. Alert and oriented. HEENT: Head is normocephalic, atraumatic NECK: Supple. LUNGS: Clear to auscultation. HEART: RRR, S1, S2 present. Peripheral pulses intact ABDOMEN: Soft, nontender. Positive bowel sounds. EXTREMITIES: Without any cyanosis. NEUROLOGIC: Normal speech, normal tone PSYCHIATRIC: Normal affect, normal mood. SKIN: No ulcerations ASSESSMENT: 1. Inferior stemi s/p PCI 2. HTn 3. DLP 4. Tobacco abuse PLAN: 1, Discussed need for tobacco cessation. Meds reviewed with patient. Discussed exercise regimen. f/u in office in 3 months. thanks Justicifation of Admission Dx: Justifications for Admission: Justification of Admission Dx: Yes ALEKSANDER GIANG MD Oct 04, 2019 23:28
== END 2019-10-04 17:55 | disposition home or self-care (01) | DRG 246 ==
LOC: ER 18:22 → 1 WEST ICU 18:42 → 2 NORTH 10-03 14:25
PROVIDERS: ADMIT Internal Medicine; ATTEND Internal Medicine
PROC: 4A023N7 Measurement of Cardiac Sampling and Pressure, Left Heart, Percutaneous Approach (ICD-10-PCS; principal; 2019-10-02)
PROC: 027035Z Dilation of Coronary Artery, One Artery with Two Drug-eluting Intraluminal Devices, Percutaneous Approach (ICD-10-PCS; 2019-10-02)
PROC: B2151ZZ Fluoroscopy of Left Heart using Low Osmolar Contrast (ICD-10-PCS; 2019-10-02)
DX: I21.19 ST elevation (STEMI) myocardial infarction involving other coronary artery of inferior wall (principal); I50.23 Acute on chronic systolic (congestive) heart failure; N17.0 Acute kidney failure with tubular necrosis; R57.0 Cardiogenic shock; E03.9 Hypothyroidism, unspecified; J44.9 Chronic obstructive pulmonary disease, unspecified; K21.9 Gastro-esophageal reflux disease without esophagitis; I25.10 Atherosclerotic heart disease of native coronary artery without angina pectoris; I11.0 Hypertensive heart disease with heart failure; F17.210 Nicotine dependence, cigarettes, uncomplicated; E66.9 Obesity, unspecified; E78.5 Hyperlipidemia, unspecified; F32.9 Major depressive disorder, single episode, unspecified; R73.9 Hyperglycemia, unspecified; Z68.31 Body mass index [BMI] 31.0-31.9, adult; Z82.49 Family history of ischemic heart disease and other diseases of the circulatory system; Z71.6 Tobacco abuse counseling; Z71.3 Dietary counseling and surveillance
CPT/HCPCS: 33210; 36415; 71045; 80048; 80053; 80061; 80076; 82550; 82962; 83036; 83735; 83880; 84443; 84484; 84703; 85025; 85347; 85610; 92941; 93005; 93306; 93458; 96361; 96374; 99406; C1725; C1769; C1874; C1887; C1892; C1898; J0282; J0360; J1265; J1644; J1815; J2270; J2370; J2405; J3010; J3490; J7030; Q9967; 99285-25; C1713; G0378; J3246

== ENCOUNTER 2021-08-01 12:50 | Inpatient (IN) | payer BC ==
[~2021-08-01] VITALS: Ht 154.9 cm; Wt 75.0 kg
[~2021-08-01 12:50] MED LIST: ASPI-886 PO; ATOR20TA58 PO; BUPR150T15 PO; CARV25TA2 PO; CARV6.2511 PO; FOLIC ACID20 MG PO; LEVO50TA PO; LISI10TA16 PO; METF500T16 PO; PANT40TA77 PO; PRAS10TA9 PO; QUET25TA5 PO
[2021-08-01] MEDS ORDERED: MORPHINE SULFATE 2 MG/ML INJ. IVP ONE (13:15)
[2021-08-01 13:26] LABS: BASO # 0.2 x10^3/uL (0.0-0.2); BASO % 2 % (0-3); EOS # 0.4 x10^3/uL (0.0-0.7); EOS % 4 % (0-3); HEMATOCRIT 32.4 % (36.0-47.0); HEMOGLOBIN 10.3 g/dL (12.0-15.5); LYMPH # 2.1 x10^3/uL (1.0-4.8); LYMPH % 20 % (24-48); MEAN CORPUSCULAR HEMOGLOBIN 23 pg (25-35); MEAN CORPUSCULAR HGB CONC 32 g/dL (31-37); MEAN CORPUSCULAR VOLUME 71 fL (79-100); MONO # 0.8 x10^3/uL (0.0-1.1); MONO % 7 % (0-9); NEUT # 7.1 x10^3/uL (1.8-7.7); NEUT % 67 % (31-73); PLATELET COUNT 403 x10^3/uL (140-400); RED BLOOD COUNT 4.56 x10^6/uL (3.50-5.40); RED CELL DISTRIBUTION WIDTH 21.3 % (11.5-14.5); WHITE BLOOD COUNT 10.6 x10^3/uL (4.0-11.0)
[2021-08-01 13:35] LABS: CALCIUM 8.8 mg/dL (8.5-10.1); CREATININE 0.7 mg/dL (0.6-1.0); GFR 88.9; POTASSIUM 4.4 mmol/L (3.5-5.1)
[2021-08-01 13:40] LABS: PROTHROMBIN TIME PATIENT 12.6 SEC (11.7-14.0)
[2021-08-01 13:41] LABS: ALBUMIN 3.4 g/dL (3.4-5.0); ALBUMIN/GLOBULIN RATIO 0.9 (1.0-1.7); TOTAL BILIRUBIN 0.2 mg/dL (0.2-1.0); TOTAL PROTEIN 7.2 g/dL (6.4-8.2)
--- NOTE | 2021-08-01 13:53 | RAD ---
XR CHEST 1V CLINICAL INDICATIONS: Reason: chest pain / Spl. Instructions: / History: COMPARISON: October 02, 2019. Findings: No acute lung infiltrate or pleural effusion or pulmonary edema or lung mass or pneumothora x is seen. The heart size is mildly enlarged but stable. Some enlargement could be due to AP magnific ation. Mediastinum and pulmonary vasculature are unremarkable. IMPRESSION: No acute radiographic abnormality is seen. Electronically signed by: Shine Reeder MD (08/01/2021 1:50 PM) [id number]
[2021-08-01 14:26] VITALS: BP 127/70
[2021-08-01 14:29] LABS: INFLUENZA A PATIENT NEGATIVE (NEGATIVE); INFLUENZA B PATIENT NEGATIVE (NEGATIVE)
[2021-08-01 15:48] LABS: ANISOCYTOSIS MOD; HYPOCHROMIA MOD; MICROCYTOSIS MOD; PLT ESTIMATE INCREASED (ADEQUATE); POLYCHROMASIA SLIGHT
--- NOTE | 2021-08-01 16:17 | PHYS DOC ---
Past Medical History Past Medical History: COPD, Depression, Hypertension, Hypothyroid Past Surgical History: Other Additional Past Surgical Histo: CARDIAC STENTS 2019 Smoking Status: Current Every Day Smoker Alcohol Use: Rarely Adult General Chief Complaint Chief Complaint: CHEST PAIN HPI HPI The patient is a 50-year-old female with a history of hypertension, hyperlipidemia, coronary artery disease status post [place] and stenting x2, COPD and continuing to smoke, hypothyroidism. Ms. Perez presents for evaluation of substernal chest pressure/discomfort with onset 2 to 3 hours prior to arrival. States discomfort feels like prior [place] discomfort. Associated intermittent cold sweats. Associated nausea. Severity of discomfort about 4 out of 10 at present. No associated fevers, vomiting, upper respiratory congestion/rhinorrhea, cough, sore throat, shortness of breath, abdominal pain, flank pain, back pain, dysuria, hematuria, polyuria or oliguria, changes in bowel habits, pain or swelling to arms or legs. Patient is alert, pleasant and appropriately interactive and in no acute distress with appropriate vital signs upon initial evaluation here in the emergency department. EMS gave sublingual nitroglycerin, Nitropaste and a full- strength aspirin prehospital. Review of Systems Review of Systems A 12 point review of systems was completed and was negative except where noted in HPI above. Current Medications Current Medications Current Medications Medications (Trade) Dose Ordered Sig/Ed Start Time Stop Time Status Last Admin Dose Admin Morphine Sulfate (Morphine Sulfate) 2 mg 1X ONCE 08/01/21 13:15 08/01/21 13:16 DC 08/01/21 13:42 2 MG Allergies Allergies Allergies Coded Allergies Type Severity Reaction Last Updated Verified Penicillins Allergy Severe Hives 08/01/21 Yes Physical Exam Physical Exam 50-year-old female appearing nontoxic and in no acute distress. Head is n ormocephalic and atraumatic. Neck is supple and nontender. Oropharynx is moist. Lungs are clear to auscultation at all stations. There is a normal S1 and S2 without rubs or gallops and capillary refill is appropriate, less than 2 seconds globally. Abdomen is soft, nontender and nondistended. No pulsatile mass. Skin is warm and dry without cyanosis, clubbing or edema. Psychiatrically, the patient demonstrates appropriate mood and affect and is alert. Evaluation of the extremities reveals BUEs and BLEs neurovascularly intact distally with strength out of 5, sensation intact light touch in all nerve distributions, radial, DP and PT pulses 2+ and equal bilaterally, capillary refill less than 2 seconds, hands and feet warm and well-perfused. No dependent peripheral edema distally. No calf tenderness or swelling bilaterally. Homans test is negative bilaterally. Current Patient Data Vital Signs Vital Signs Date Time Temp Pulse Resp B/P (MAP) Pulse Ox O2 Delivery O2 Flow Rate FiO2 08/01/21 13:42 16 100 Room Air 08/01/21 13:26 68 171/70 (103) 08/01/21 12:57 98.0 98.0 Lab Values Laboratory Tests Test 08/01/21 13:00 08/01/21 13:44 White Blood Count 10.6 x10^3/uL (4.0-11.0) Red Blood Count 4.56 x10^6/uL (3.50-5.40) Hemoglobin 10.3 g/dL (12.0-15.5) L Hematocrit 32.4 % (36.0-47.0) L Mean Corpuscular Volume 71 fL (79-100) L Mean Corpuscular Hemoglobin 23 pg (25-35) L Mean Corpuscular Hemoglobin Concent 32 g/dL (31-37) Red Cell Distribution Width 21.3 % (11.5-14.5) H Platelet Count 403 x10^3/uL (140-400) H Neutrophils (%) (Auto) 67 % (31-73) Lymphocytes (%) (Auto) 20 % (24-48) L Monocytes (%) (Auto) 7 % (0-9) Eosinophils (%) (Auto) 4 % (0-3) H Basophils (%) (Auto) 2 % (0-3) Neutrophils # (Auto) 7.1 x10^3/uL (1.8-7.7) Lymphocytes # (Auto) 2.1 x10^3/uL (1.0-4.8) Monocytes # (Auto) 0.8 x10^3/uL (0.0-1.1) Eosinophils # (Auto) 0.4 x10^3/uL (0.0-0.7) Basophils # (Auto) 0.2 x10^3/uL (0.0-0.2) Platelet Estimate Increased (ADEQUATE) Polychromasia Slight Hypochromasia Mod Anisocytosis Mod Microcytosis Mod Prothrombin Time 12.6 SEC (11.7-14.0) Prothrombin Time INR 1.0 (0.8-1.1) Activated Partial Thromboplast Time 29 SEC (24-38) Sodium Level 136 mmol/L (136-145) Potassium Level 4.4 mmol/L (3.5-5.1) Chloride Level 101 mmol/L (98-107) Carbon Dioxide Level 24 mmol/L (21-32) Anion Gap 11 (6-14) Blood Urea Nitrogen 7 mg/dL (7-20) Creatinine 0.7 mg/dL (0.6-1.0) Estimated GFR (Cockcroft-Gault) 88.9 BUN/Creatinine Ratio 10 (6-20) Glucose Level 97 mg/dL (70-99) Calcium Level 8.8 mg/dL (8.5-10.1) Total Bilirubin 0.2 mg/dL (0.2-1.0) Aspartate Amino Transferase (AST) 30 U/L (15-37) Alanine Aminotransferase (ALT) 46 U/L (14-59) Alkaline Phosphatase 113 U/L (46-116) Troponin I High Sensitivity 5 ng/L (4-50) UD-Bbv-L-Type Natriuretic Peptide 82 pg/mL (0-124) Total Protein 7.2 g/dL (6.4-8.2) Albumin 3.4 g/dL (3.4-5.0) Albumin/Globulin Ratio 0.9 (1.0-1.7) L Thyroid Stimulating Hormone (TSH) 0.600 uIU/mL (0.358-3.74) Influenza Type A Antigen Negative (NEGATIVE) Influenza Type B Antigen Negative (NEGATIVE) SARS-CoV-2 Antigen (Rapid) Negative (NEGATIVE) Laboratory Tests 08/01/21 13:00 Laboratory Tests 08/01/21 13:00 EKG EKG Sinus rhythm, rate 64, no acute ST elevation or depression, OK 164, QRS 90, QTc 431, EP interpretation. Nonischemic tracing, intervals appropriate. Radiology/Procedures Radiology/Procedures XR CHEST 1V CLINICAL INDICATIONS: Reason: chest pain / Spl. Instructions: / History: COMPARISON: October 02, 2019. Findings: No acute lung infiltrate or pleural effusion or pulmonary edema or lung mass or pneumothorax is seen. The heart size is mildly enlarged but stable. Some enlargement could be due to AP magnification. Mediastinum and pulmonary vasculature are unremarkable. IMPRESSION: No acute radiographic abnormality is seen. 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 Labs, EKG and chest x-ray are nonacute. Recommended admission for troponin trending, cardiology consultation and further care, to which the patient initially agreed, but when nursing went to bedside to bring her to her inpatient room she declined admission, stating that she preferred to go home. Went to bedside and counseled the patient that by electing to leave the hospital when admission is recommended, that she is at risk for decompensation, permanent disability, loss of current lifestyle, loss of limb and even . She understands these risks and is able to restate them in her own words and agrees to be wholly and solely responsible for them in their entirety. After begging her to stay at least for repeat cardiac enzyme testing, she is agreeable to a second set of cardiac enzymes. Pending that, she will discharge against my advice. Patient states she is chest pain-free now and feels completely well. 1630: Patient resting comfortably no acute distress on reassessment. Reports no recurrence of her presenting chest discomfort. Feels well. Delta troponin negative. Discharging against my advice as per documentation above. Patient understands that if she changes her mind and wants to be further evaluated in the hospital for her chest pain that she may return at any time and we will be happy to take care of her. She understands that if he feels worse instead of better or develops other new symptoms of concern that she should return to the emergency department right away for reevaluation. All questions have been answered. Dragon Disclaimer Dragon Disclaimer This electronic medical record was generated, in whole or in part, using a voice recognition dictation system. Departure Departure Impression: Primary Impression: Unstable angina Disposition: LEFT AGAINST MEDICAL ADVICE Condition: GUARDED Referrals: RAYNA CHAVARRIA DO (PCP) Patient Instructions: Chest Pain (Nonspecific) Additional Instructions: You are leaving the hospital against my advice as we discussed at length. Your repeat cardiac enzyme test was normal but the scenario is concerning and you have a number of risk factors. If you change your mind about wanting to be further evaluated in the hospital for your chest discomfort earlier, simply returning we will be happy to take care of you. You should follow-up very closely (tomorrow) with Dr. Marti and should return to the emergency department right away if symptoms return or worsen or if other new symptoms of concern develop. HUMBLE KELLEY MD Aug 01, 2021 16:17
--- NOTE | 2021-08-02 00:36 | EKG ---
[facility] [address] [place] [address] Test Date: 2021-08-01 Test Time: 13:00:22 Pat Name: MARIETTA DE LEON Department: Room: [facility] Gender: F [employer]: : 1970 Requested By: HUMBLE KELLEY Order Number: [id number] Reading MD: Noah Bella Measurements Intervals [place] Rate: 64 P: -23 WI: 164 QRS: 20 QRSD: 90 T: 31 QT: 414 QTc: 431 Interpretive Statements SINUS RHYTHM QRS(T) CONTOUR ABNORMALITY CONSIDER ANTEROSEPTAL MYOCARDIAL DAMAGE Electronically Signed On 08-06-2021 14:04:17 CDT by Noah Bella
== END 2021-08-01 19:14 | disposition left against medical advice (07) | DRG 303 ==
LOC: ER 12:50 → 6 SOUTH 14:00
PROVIDERS: ADMIT Internal Medicine; ATTEND Internal Medicine
DX: I25.110 Atherosclerotic heart disease of native coronary artery with unstable angina pectoris (principal); E03.9 Hypothyroidism, unspecified; E78.5 Hyperlipidemia, unspecified; I10 Essential (primary) hypertension; I25.2 Old myocardial infarction; J44.9 Chronic obstructive pulmonary disease, unspecified; Z87.891 Personal history of nicotine dependence; Z95.5 Presence of coronary angioplasty implant and graft; F32.A Depression, unspecified; Z20.822 Contact with and (suspected) exposure to COVID-19; Z88.0 Allergy status to penicillin; I25.10 Atherosclerotic heart disease of native coronary artery without angina pectoris; Z53.29 Procedure and treatment not carried out because of patient's decision for other reasons
CPT/HCPCS: 36415; 71045; 80053; 83880; 84443; 84484; 85025; 85610; 85730; 87428; 93005; 96374; J2270; 99285-25; G0378